=== PATIENT | female | born 1955 | race Caucasian/White ===

== ENCOUNTER 2022-05-24 08:02 | Outpatient (CLI) | payer MEDICARE, BC, OTHER, SELFPAY ==
--- NOTE | 2022-05-24 08:15 | CRLHL7_ITS ---
For Patients: As a result of the Century Cures Act, medical imaging exams and procedure reports are released immediately into your electronic medical record. You may view this report before your referring provider. If you have questions, please contact your health care provider. BILATERAL MAMMOGRAM WITH COMPUTER-AIDED DETECTION AND TOMOSYNTHESIS TECHNIQUE: CC and MLO views were obtained. These mammographic images have been obtained using full-field digital technique. These mammographic images were interpreted with the benefit of computer-aided detection. Breast Tomosynthesis was used in this interpretation. COMPARISON FILM: 01/19/2021, 10/28/2019, 06/02/2018. FINDINGS: The breasts are heterogeneously dense, which may obscure small masses IMPRESSION: There is no radiographic evidence for malignancy. ASSESSMENT: BI-RADS Category 1: Negative RECOMMENDATION: Routine screening mammogram in 1 year. A lay language report of this examination will be provided to the patient. Good Armstrong M.D. Diagnostic Radiologist [email or web address] [place]OR/Dictated by: Good Armstrong MD @ 05/24/2022 9:24:00 AM (Electronically Signed)
== END 2022-05-24 08:03 | disposition home or self-care (01) ==
LOC: MAMMO 08:05
PROVIDERS: Visit Provider Internal Medicine
DX: Z12.31 Encounter for screening mammogram for malignant neoplasm of breast (principal)
CPT/HCPCS: 77063; 77067

== ENCOUNTER 2022-06-20 08:14 | Outpatient (CLI) | payer MEDICARE, BC, OTHER, SELFPAY ==
[2022-06-20 12:15] LABS: Cholesterol* 179 mg/dL (90-199); Creatinine* 0.9 mg/dL (0.5-1.5); Estimated Glomerular Filt Rate 70 ml/min
[2022-06-20 12:16] LABS: Glucose* 93 mg/dL (60-115); HDL Cholesterol* 54 mg/dL (>=50); LDL Cholesterol Calculated 104 mg/dL (<100); Triglycerides* 107 mg/dL (40-149)
[2022-06-20 12:25] LABS: Vitamin D 25 Hydroxy* 36 ng/mL (30-80)
== END 2022-06-20 08:15 | disposition home or self-care (01) ==
PROVIDERS: Visit Provider Obstetrics & Gynecology
DX: Z01.419 Encounter for gynecological examination (general) (routine) without abnormal findings (principal); Z13.1 Encounter for screening for diabetes mellitus; Z13.6 Encounter for screening for cardiovascular disorders; Z13.29 Encounter for screening for other suspected endocrine disorder; Z90.5 Acquired absence of kidney; Z13.21 Encounter for screening for nutritional disorder; M85.80 Other specified disorders of bone density and structure, unspecified site; K58.9 Irritable bowel syndrome, unspecified; N95.1 Menopausal and female climacteric states
CPT/HCPCS: 80061; 82306; 82565; 82947; 84443

== ENCOUNTER 2022-07-26 12:49 | Outpatient (CLI) | payer MEDICARE, BC, OTHER, SELFPAY ==
--- NOTE | 2022-07-26 13:30 | CRLHL7_ITS ---
For Patients: As a result of the Century Cures Act, medical imaging exams and procedure reports are released immediately into your electronic medical record. You may view this report before your referring provider. If you have questions, please contact your health care provider. DXA BONE MINERAL DENSITY STUDY Current height (in): 65.0 Weight (lb): 148.0 Menopause age: 53 Ethnicity: White 1. Have you had a previous hip or vertebral fracture? No. 2. Have you had any fractures during your adult life which did not result from significant trauma (e.g., auto accident)? No. 3. Did either of your parents have a hip fracture? No. 4. Do you smoke? No. 5. Have you ever taken Glucocorticoids? No. 6. Do you have rheumatoid arthritis? No. 7. Do you have secondary osteoporosis? No. 8. Do you drink 3 or more alcoholic drinks per day? No. 9. Are you being treated for osteoporosis? No. 10. Have you ever taken any of the following medications: Actonel, Evista, Fosamax, Miacalcin, Reclast, Boniva, Forteo, HRT (i.e. estrogen/hormone therapy), Protelos, Prolia, Vitamin D, Calcium, other ??? please specify. ANSWER: Yes, Vitamin D, Calcium. 11. Do you have any of the following medical conditions: Anorexia or bulimia, asthma or emphysema, end stage renal disease, hyperparathyroidism, any seizure disorders, cancer, inflammatory bowel diseases, hysterectomy, other ??? please specify. ANSWER: No. 12. What was your maximum height (inches)? 65 13. Do you perform weight bearing exercise regularly? No. 14. Do you regularly consume dairy products? Yes. 15. Do you drink caffeinated beverages? Yes. 16. At what age did your period start? 10 17. Are you premenopausal? No. 18. How many full term pregnancies have you had? 3 19. Have you ever missed your period for more than 6 months in a row (not including or menopause)? No. TECHNIQUE: Bone mineral density study was performed using the [employer]. FINDINGS: The results of the study expressed as bone mineral density (BMD) are as follows: Lumbar spine L1 to L4: BMD: 0.856 g/cm2. T-score: -1.7. Z-score: 0.3. Neck Left: BMD: 0.660 g/cm2. T-score: -1.7. Z-score: 0.0. Right: BMD: 0.629 g/cm2. T-score: -2.0. Z-score: -0.3. Total Left: BMD: 0.805 g/cm2. T-score: -1.1. Z-score: 0.3. Right: BMD: 0.815 g/cm2. T-score: -1.0. Z-score: 0.4. IMPRESSION: Osteopenia. *Comparison exams done prior to 04/2020 were performed on different unit, [facility]. COMPARISON: Compared with scan of 05/25/2020, the bone mineral density has decreased by 0.3 percent at the spine and increased by 3.4 percent at the hip. Compared with scan of 02/02/2019, the bone mineral density has decreased by 3.1 percent at the spine and increased by 3.8 percent at the hip. FRAX 10-year Fracture Risk Major Osteoporotic Fracture: 11 percent Hip Fracture: 2.0 percent Reported Risk Factors: [place] () Neck BMD=0.629, BMI=24.6 Good Armstrong M.D. Diagnostic Radiologist [email or web address] DSM/pjt PT/Dictated by: Good Armstrong MD @ 07/26/2022 2:43:00 PM (Electronically Signed)
== END 2022-07-26 12:50 | disposition home or self-care (01) ==
LOC: RAD 12:49
PROVIDERS: Visit Provider Obstetrics & Gynecology
DX: Z13.820 Encounter for screening for osteoporosis (principal); M85.89 Other specified disorders of bone density and structure, multiple sites; M85.80 Other specified disorders of bone density and structure, unspecified site; Z79.51 Long term (current) use of inhaled steroids
CPT/HCPCS: 77080

== ENCOUNTER 2023-06-04 08:42 | Outpatient (CLI) | payer MEDICARE, BC, OTHER, SELFPAY ==
--- NOTE | 2023-06-04 08:45 | CRLHL7_ITS ---
For Patients: As a result of the Century Cures Act, medical imaging exams and procedure reports are released immediately into your electronic medical record. You may view this report before your referring provider. If you have questions, please contact your health care provider. BILATERAL SCREENING MAMMOGRAM WITH COMPUTER-AIDED DETECTION AND TOMOSYNTHESIS TECHNIQUE: CC and MLO views were obtained. These mammographic images have been obtained using full-field digital technique. These mammographic images were interpreted with the benefit of computer-aided detection. Breast tomosynthesis was used in this interpretation. COMPARISON FILM: 05/24/22, 01/19/21, 10/28/19. FINDINGS: There are scattered areas of fibroglandular density. IMPRESSION: There is no radiographic evidence for malignancy. ASSESSMENT: BI-RADS Category 1: Negative RECOMMENDATION: Routine screening mammogram in 1 year. A lay language report of this examination will be provided to the patient. GOOD PINEDO M.D. Diagnostic Radiologist [email or web address] JACQUELINE/duy Transcribed: 06/04/2023, 6:[address]/Dictated by: Good Pinedo MD @ 06/04/2023 12:50:00 PM (Electronically Signed)
== END 2023-06-04 08:43 | disposition home or self-care (01) ==
LOC: MAMMO 08:43
PROVIDERS: PCP Internal Medicine; Visit Provider Obstetrics & Gynecology
DX: Z12.31 Encounter for screening mammogram for malignant neoplasm of breast (principal)
CPT/HCPCS: 77063; 77067

== ENCOUNTER 2023-06-05 06:01 | Day surgery (SDC) | payer MEDICARE, BC, OTHER, SELFPAY ==
[2023-06-05] VITALS (16 sets, daily range): BP systolic 102–163; BP diastolic 49–90; PULSE 66–92; RESP 16–20; TEMP 36.1–36.3; O2SAT 92–99; BMI 25.9
[2023-06-05] MEDS: LACTATED RINGERS 1000 ML 1,000 ML 100 ML IV ×2 (06:55→09:20)
[2023-06-05] MEDS: SODIUM CHLORIDE 0.9 % (FLUSH) 10 ML SYRINGE IVF (06:56)
[2023-06-05] MEDS: SCOPOLAMINE 1 MG/3 DAY PATCH 1 PATCH TRANSDERMA (07:10)
[2023-06-05] MEDS: MIDAZOLAM HCL 1 MG/ML inj IVP (07:12)
[2023-06-05] MEDS: fentaNYL 100 MCG/2 ML inj IVP (07:12)
--- NOTE | 2023-06-05 07:16 | SUR.PREOP ---
TIME?OUT:?711 PT/RN/MDA?VERIFICATION?OF?SURGICAL?SITE,?PROCEDURE,?AND?CONSENT OBTAINED?PRIOR?TO?INVASIVE?PROCEDURE.
[2023-06-05] MEDS: CEFAZOLIN 2 GM in 0.9 % SODIUM CHLORIDE Mini-bag 100 ML IVPB (07:35)
[2023-06-05] MEDS: EPINEPHrine 1 MG in SODIUM CHLORIDE IRRIG SOLUTION 3,000 ML 9003 MG IRRIGATION ×6 (08:00→09:26)
[2023-06-05] MEDS: EPINEPHrine 1 MG in SODIUM CHLORIDE IRRIG SOLUTION 3,000 ML 3001 MG IRRIGATION (08:45)
--- NOTE | 2023-06-05 09:46 | PM.ORPRC ---
Procedure Note Date of procedure: 06/05/23 Procedure: PREOPERATIVE DIAGNOSES: 1. Right shoulder rotator cuff retear after prior repair (2016, Dr. Meza.) 2. Right shoulder labral tearing POSTOPERATIVE DIAGNOSES: 1. Right shoulder rotator cuff retear after prior repair (2016, Dr. Meza.)-now upper border subscapularis, entire supraspinatus, and anterior infraspinatus were all torn with significant adhesions and limited excursion initially 2. Right shoulder labral tearing 3. 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 Right shoulder retained deep implant (FiberWire suture and Ethibond suture from prior rotator cuff repair along with metallic anchor was and peek PushLock anchors. NAME OF OPERATION: 1. Right shoulder arthroscopic rotator cuff re-repair (massive tear with 3/4 tendon involvement with significant retraction and adhesions) - of note, 20% added difficulty for this case and added time due to the significant adhesions of this rotator cuff retear. The tissue quality was also fair as opposed to good. This required more release of the tissue to help with tissue excursion and repair. 2. Right shoulder arthroscopic extensive glenohumeral debridement 3. Right shoulder arthroscopic removal foreign body (multiple FiberWire and Ethibond suture) SURGEON: Cachorro Samson MD HAND SPRING REPAIRER HELPER: Tevin Jasso. Of note, a skilled coding assistant was critical for this case to aide in patient positioning, suture manipulation, arm positioning, instrument positioning, and closure. ANESTHESIA: General plus preoperative supraclavicular block. EBL: 25 mL IMPLANTS: Arthrex 2.6 mm FiberTak RC (x2); 5.5 mm BioComposite SwiveLock suture anchor (x2); 4.75 mm BioComposite SwiveLock suture anchor (x1) COMPLICATIONS: None evident INDICATIONS: The patient is a pleasant, 67-year-old female who has experienced right shoulder pain that has been increasing in recent time. Physical exam and imaging were consistent with a rotator cuff tear. In fact, her history of rotator cuff repair in 2016 (Dr. Shore) did fine for number of years. Unfortunately, last couple years she has noted increasing pain and weakness and dysfunction. Given their findings, as well as the weakness and pain, and inadequate response to nonoperative management, recommendation was made for surgery. FINDINGS: Exam under anesthesia revealed stable shoulder with excellent range of motion. The diagnostic arthroscopy revealed grade 3 chondromalacia humeral head especially superiorly and anteriorly. Small region grade 3 glenoid chondromalacia centrally. The Subscapularis tendon was torn from its upper border with the, tissue connected. The biceps tendon was absent consistent with prior biceps tenotomy. The superior rotator cuff tendon was found to be torn full-thickness involving the entire supraspinatus and anterior majority of the infraspinatus with significant retraction in a reverse L-shaped type pattern. The labrum was degeneratively frayed in the anterior and superior aspects with a small region of the biceps stump remaining. No loose bodies were identified within the pouch or subscapularis recess. PROCEDURE: Following a thorough discussion of risks, benefits, and alternatives, consent was obtained and the right shoulder was marked. The patient was brought to the operating room and placed supine on the operating table. Induction of anesthesia was completed after preoperative supraclavicular block was administered in preop holding. Appropriate time out was performed identifying proper patient, site, and procedure. 2 g IV Ancef was administered within 1 hour of incision preoperatively. The right upper extremity was prepped and draped in the appropriate sterile fashion using ChloraPrep prep. This was after the patient was positioned in the beach chair with their head in neutral alignment and all bony prominences well padded. The shoulder was insufflated with 20mL of normal saline via an 18g spinal needle from a posterior approach. An 11 blade skin incision allowed a blunt trochar to be inserted and diagnostic arthroscopy to be performed with the findings as noted above. An anterior portal was established with an outside in technique. This allowed the probe to be inserted and confirm the diagnostic arthroscopic findings. The shaver was then inserted and allowed debridement of the anterior and superior labrum as well as biceps stump and loose chondral flaps on the humeral head and glenoid chondral tissue. Following this, the upper border subscapularis was repaired after debriding the lesser tuberosity with the shaver and [place] cautery. Subscapularis was captured in horizontal mattress fashion with a fiber tape suture. The tails were brought to a single anchor in the lesser tuberosity with excellent reapproximation of the subscap tendon and good excursion/tension. Thereafter, the subacromial space was entered. Here, a complete bursectomy was performed improving visualization of the subacromial space. We were able to identify the rotator cuff including supraspinatus and infraspinatus. This was retracted in a reverse L-shaped type pattern. It was retracted near to the level of the glenoid. Significant lysis of adhesions and tissue mobilization was required both superficially and deep to the rotator cuff tissue to improve its excursion and repair ability. Further inspection of the supraspinatus and infraspinatus rotator cuff was performed. This identified the tear as noted above. The previous metallic corkscrew anchors with for the medial row fixation and peek PushLock suture anchors for lateral fixation were identified. Multiple FiberWire and Ethibond sutures were seen throughout the shoulder both near the anchor attachments and within the torn rotator cuff tissue. This FiberWire and Ethibond suture foreign bodies were removed arthroscopically with a combination of [place], shaver, and arthroscopic scissors. The margins of the tear were debrided, and the greater tuberosity was debrided with a combination of the [place] cautery, shaver, and bur on reverse setting. Extensive lysis of adhesions and tissue dissection was required to mobilize the rotator cuff tissue provide improved excursion to help with rotator cuff reattachment. After gentle decortication, 2 separate 2.6 mm FiberTak RC (standard) anchor was utilized for medial row. The suture tape sutures were passed independently and eventually tied. The FiberTape sutures were then passed deep to this like a Yusef-Dar concept. This was performed for both the anterior and posterior medial row anchors. Marginal convergence sutures were also utilized for the reverse L-shaped component attaching the anterior portion supraspinatus to the more anterior tissue including the common tissue and rotator interval tissue. 1 of the tapes from each of the anchors were then passed into a lateral row anchor and of FiberLink was also utilized for the far anterior tissue to help reapproximate this. Excellent reapproximation of the tissue to the greater tuberosity was achieved with broad footprint compression. Prior to anchor automobile drivers removal, the eyelet sutures were tugged on for each anchor and found that the anchor had excellent stability within the bone. The shoulder was placed through range of motion and found to be stable. The rotator cuff was re-probed and found to be stable. Instruments were removed. Excess fluid was drained, closure performed with 4-0 Monocryl and Steri-Strips. Dressings were applied. Sling was applied. The patient was awoken from anesthesia and transferred to the PACU in stable condition. A skilled coding assistant was critical for this case to aid in patient positioning, limb positioning, skill to manipulate arthroscopic instruments and camera, suture management, patient safety, and closure. * again, 20% added time, difficulty, and complexity for this case due to the retear scenario, retraction of rotator cuff tissue, and adhesions to the surrounding tissue/bursal tissue requiring significantly greater tissue mobilization, tissue dissection, and time. PLAN: 1. Elbow, forearm, wrist and digit range of motion as tolerated. 2. Encouraged ice. 3. Percocet for pain as needed. 4. Sling at all times except for ROM and showering. 5. Follow up with PA visit in 1-2 weeks for wound check. Initiate physical therapy at the 4 week mayo for passive range of motion. Weight on active assisted motion and tell approximately 8 weeks. Active motion by approximately 10 weeks. Strengthening not until approximately 12-14 weeks due to the retear situation and massive tear size. May do pendulums now.
--- NOTE | 2023-06-05 09:47 | P.NB_ITS ---
Nerve Block Nerve Block Time Seen by Provider: 07:15 Date Seen: 06/05/23 Type of block requested by surgeon for post-operative analgesia: supraclavicular Side: right Time out performed: Yes Verification of patient name: Yes Verification of date of : Yes Site marking: site marked Name of person performing procedure: Sylvester Continuous monitoring Was continuous monitoring of O2 sat, B/P, diagnostic cardiac sonographer, recorded every 15 minutes?: Yes Procedure Checklist: sterile prep, needles and gloves Ultrasound guided. Images saved: Yes Medications given in 5ml increments after negative aspiration: Ropivicaine %: 0.5 mL: 20 Needle gauge: 22 Decadron (mg): 10 Precedex (mcg): 25 Patient tolerated procedure well: Yes Block Charges Block Charge (with Pro Fee): Brachial Plexus Use of Ultrasound Machine for Block: Yes- US Guidance/pain block
--- NOTE | 2023-06-05 09:47 | W.ANESCHARGE ---
Anesthesia Charges Start Date/Time Anesthesia Start Date: 06/05/23 Anesthesia Start Time: 07: Stop Date/Time Anesthesia Stop Date: 06/05/23 Anesthesia Stop Time: 10:11
--- NOTE | 2023-06-05 10:12 | W.ANESCHARGE ---
Anesthesia Charges Start Date/Time Anesthesia Start Date: 06/05/23 Anesthesia Start Time: 07: Stop Date/Time Anesthesia Stop Date: 06/05/23 Anesthesia Stop Time: 10:11
== END 2023-06-05 12:39 | disposition home or self-care (01) ==
PROVIDERS: PCP Internal Medicine; Visit Provider Orthopaedic Surgery Sports Medicine
PROC: (CPT 29805; principal; 2023-06-05 07:30)
DX: M75.101 Unspecified rotator cuff tear or rupture of right shoulder, not specified as traumatic (principal); S43.431A Superior glenoid labrum lesion of right shoulder, initial encounter; M94.211 Chondromalacia, right shoulder; M79.5 Residual foreign body in soft tissue; M75.01 Adhesive capsulitis of right shoulder; G89.18 Other acute postprocedural pain
CPT/HCPCS: 29827; 29823; 29819; 01630; 64415; 76942; A9270; C1713; J0171; J0690; J1100; J2250; J2795; J3010; J7120; L3670

== ENCOUNTER 2023-06-08 17:50 | Emergency (ER) | payer MEDICARE, BC, OTHER, SELFPAY ==
[2023-06-08 17:58] VITALS: BP 130/79; PULSE 112; RESP 18; TEMP 36.6; O2SAT 96; BMI 25.5
--- NOTE | 2023-06-08 19:25 | CRLHL7_ITS ---
For Patients: As a result of the Cures Act, medical imaging exams and procedure reports are released immediately into your electronic medical record. You may view this report before your referring provider. If you have questions, please contact your health care provider. INDICATION: Shortness of breath, unable to lift arm, recent rotator surgery, short of breath TECHNIQUE: Chest radiograph 1 view COMPARISON: None FINDINGS: Mediastinum: The mediastinum is normal in appearance. The heart silhouette is normal in size and morphology. Lung: Linear band of density seen in the right lung base, likely due to discoid atelectasis. There is an asymmetric density in the medial right apex measuring 8 mm which is most likely due to osteophytes at the 1st costochondral junction. No sign of pleural effusion seen. No pneumothorax is identified. Bone and Soft tissue: See above. IMPRESSION: 1. There is an asymmetric density in the medial right apex measuring 8 mm which is most likely due to osteophytes at the 1st costochondral junction. Follow-up two-view chest radiograph is recommended to exclude pulmonary nodule. Dictated by Jeffrey San MD @ 06/08/2023 9:04:44 PM Dictated by: Jeffrey San MD @ 06/08/2023 21:04:49 (Electronically Signed)
--- NOTE | 2023-06-08 19:25 | CRLHL7_ITS ---
For Patients: As a result of the Century Cures Act, medical imaging exams and procedure reports are released immediately into your electronic medical record. You may view this report before your referring provider. If you have questions, please contact your health care provider. INDICATION: Cough. Post right rotator 06/05/2023. TECHNIQUE: Ultrasound venous duplex upper right extremity. Compression venous exam was performed using infante-scale, color Doppler, and spectral Doppler imaging. COMPARISON: None. FINDINGS: The right internal jugular, subclavian, and axillary veins are patent with normal waveforms. The brachial, basilic, and cephalic veins are fully compressible. No soft tissue abnormalities seen. IMPRESSION: No right upper extremity DVT. Dictated by Good Wiley MD @ 06/08/2023 9:39:52 PM (Electronically Signed)
--- NOTE | 2023-06-08 19:27 | ED.GENADULT ---
HPI - General Adult General Chief complaint: Cough Stated complaint: cough, had surgery on 06/05/23 Time Seen by Provider: 06/08/23 19:15 History of Present Illness HPI narrative: This 67-year-old female comes in reporting feeling of shortness of breath and increased heart rate. She does use albuterol inhaler and just now started Advair Diskus. She states that she has had a cough but does not report any fevers. She had her right rotator cuff repaired 3 days ago and has been doing well in that regard. She does not report any significant swelling in her right upper extremity or for that matter any of the other extremities. She does arrive with oximetry at 96% on room air but does have increased heart rate at 112 beats per minute. She does not report any chest pain. Related Data Home Medications Medication Instructions Recorded Confirmed Lactobacillus acidophilus 1 1,000 mmu cells PO QDAY 06/15/22 06/05/23 billion cell tablet acyclovir 5 % topical ointment 1 topical .5 Times Daily 06/15/22 03/29/23 albuterol sulfate 90 mcg/actuation 2 inhalation PRN 06/15/22 03/29/23 aerosol inhaler cholecalciferol (vitamin D3) 50 2,000 unit PO DAILY 06/15/22 06/05/23 mcg (2,000 unit) tablet epinephrine 0.3 mg/0.3 mL 0.3 mg IM .As Needed as needed PRN 06/15/22 06/05/23 injection, auto-injector estradiol 0.01% (0.1 mg/gram) 1 vaginal .Twice Weekly 06/15/22 03/29/23 vaginal cream loratadine 10 mg tablet 10 mg PO DAILY 06/15/22 06/05/23 multivitamin 1 tab PO QAM 06/15/22 06/05/23 triamcinolone acetonide 55 mcg 1 spray intranasal QDAY 06/15/22 06/05/23 nasal spray aerosol (Nasacort) ondansetron 4 mg disintegrating mg PRN 06/05/23 tablet Previous Rx's Medication Instructions Recorded ondansetron 4 mg disintegrating 4 mg PO Q8H #15 tabs 06/05/23 tablet oxycodone 5 mg tablet 5 mg PO Q4-8H PRN pain #20 tabs 06/05/23 fluticasone 250 mcg-salmeterol 50 1 inh inhalation BID #1 ea 06/08/23 mcg/dose blistr powdr for inhalation (Advair Diskus) Allergies Allergy/AdvReac Type Severity Reaction Status Date / Time fish oil Allergy Severe Anaphylactic Verified 06/05/23 06:13 shock iodine Allergy Severe Anaphylactic Verified 06/05/23 06:13 shock Fish Containing Products Allergy Anaphylaxis Verified 06/05/23 06:13 Penicillins Allergy Rash Verified 06/05/23 06:13 Sulfa (Sulfonamide Allergy Verified 06/05/23 06:13 Antibiotics) Review of Systems Status of ROS: Reports: 10 or more systems reviewed and unremarkable except as noted in History and below Narrative: Constitutional: No fevers, no weight gain or loss. Eyes: No discharge. No vision changes. HENT: No congestion, no sore throat, no ear pain. Cardiovascular: No chest pain, no palpitations. Respiratory: Cough and some feeling of shortness of breath. Gastrointestinal: No abdominal pain, no vomiting, no diarrhea. Genitourinary: No dysuria, no hematuria. Musculoskeletal: Normal range of motion. Skin: No rashes, no pruritis. Neurological: No dizziness, weakness, sensory change, speech change. Endo/Heme/Allergies: No bruising or bleeding. No polydipsia. Pysch: no suicidality, no anxiety, no insomnia. All other systems reviewed and are negative. [facility] Medical History (Updated 06/08/23 @ 21:18 by Bebo Kaplan MD) Stage 3 chronic kidney disease ?N18.30 - Chronic kidney disease, stage 3 unspecified (ICD-10) GERD (gastroesophageal reflux disease) ?K21.9 - Gastro-esophageal reflux disease without esophagitis (ICD-10) Absence of kidney ?Z90.5 - Acquired absence of kidney (ICD-10) Osteopenia ?M85.80 - Other specified disorders of bone density and structure, unspecified site (ICD-10) Osteoarthritis of carpometacarpal joint of left thumb ?M18.12 - Unilateral primary osteoarthritis of first carpometacarpal joint, left hand (ICD-10) De Quervain's tenosynovitis, left ?M65.4 - Radial styloid tenosynovitis [de Quervain] (ICD-10) History of basal cell carcinoma (BCC) ?Z85.828 - Personal history of other malignant neoplasm of skin (ICD-10) Surgical History S/P right rotator cuff repair (06/05/23) ?Z98.890 - Other specified postprocedural states (ICD-10) History of arthroscopy of right shoulder (05/29/16) ?Z98.890 - Other specified postprocedural states (ICD-10) S/P correction of deviated nasal septum (02/2022) ?Z98.890 - Other specified postprocedural states (ICD-10) History of carpal tunnel release (06/2014) ?Z98.890 - Other specified postprocedural states (ICD-10) History of tonsillectomy (~1964) ?Z90.89 - Acquired absence of other organs (ICD-10) H/O inguinal hernia repair (1982) ?Z98.890 - Other specified postprocedural states (ICD-10) ?Z87.19 - Personal history of other diseases of the digestive system (ICD-10) H/O dilation and curettage (1980) ?Z98.890 - Other specified postprocedural states (ICD-10) Status post laparoscopy (01/2020) ?Z98.890 - Other specified postprocedural states (ICD-10) History of right nephrectomy (2016) ?Z90.5 - Acquired absence of kidney (ICD-10) Social History Smoking Status: Never smoker Do you use any of these nicotine containing products: None Second hand tobacco smoke exposure: No How often do you have a drink containing alcohol: never AUDIT-C Alcohol total score: 0 Non-prescribed substance use: denies use Caffeine: Yes (2c/day) Are you now , , , , never or living with a partner: Social isolation score (0-1 are the most socially isolated patients): 1 Are you using contraception or practicing any form of control: No Exam Narrative: Exam Narrative: Constitutional: Well-developed, well-nourished, no acute distress. HEENT: Normocephalic, atraumatic. Neck: Normal range of motion. Nontender. Supple. Heart: Regular. No murmurs. Normal rate. Intact distal pulses. Lungs: Clear to auscultation. No chest discomfort. No wheezes, rhonchi, or rales. Abdomen: Normal bowel sounds. Nontender. No rebound tenderness. Genitalia: Deferred. Back: No midline tenderness. Normal range of motion. Extremities: Right shoulder bandage was removed by the patient prior to arrival. The surgical wounds appear to be healing normally. She does have some bruising and erythema in her right upper extremity related to the surgery and probably some reaction of her skin to the dressing that was applied. Skin: Intact. No rash. Warm. No erythema or pallor. Neurologic: No altered sensation. No weakness. Alert and oriented. Psychiatric: No suicidality. No anxiety or depression. No insomnia. Nursing notes and vitals signs are reviewed. Const: Vital Signs, click to edit/add: Vital Signs - 24 hr 06/08/23 17:58 Temperature 97.8 F Pulse Rate [Right Pulse Oximeter] 112 H Respiratory Rate 18 Blood Pressure [Ri ght Upper Arm] 130/79 Pulse Oximetry 96 Oxygen Delivery Me thod Room Air Course Vital Signs Vital signs: Initial Vital Signs Temperature 97.8 F 06/08/23 17:58 Temperature Source Temporal Artery Scan 06/08/23 17:58 Pulse Rate 112 H 06/08/23 17:58 Respiratory Rate 18 06/08/23 17:58 Blood Pressure 130/79 06/08/23 17:58 Blood Pressure Mean 96 06/08/23 17:58 Blood Pressure Position Sitting 06/08/23 17:58 Pulse Oximetry 96 06/08/23 17:58 Oxygen Delivery Method Room Air 06/08/23 17:58 Vital Signs Temperature 97.8 F 06/08/23 17:58 Pulse Rate 112 H 06/08/23 17:58 Respiratory Rate 18 06/08/23 17:58 Blood Pressure 130/79 06/08/23 17:58 Pulse Oximetry 96 06/08/23 17:58 Oxygen Delivery Method Room Air 06/08/23 17:58 Temperature 97.8 F 06/08/23 17:58 Pulse Rate 112 H 06/08/23 17:58 Respiratory Rate 18 06/08/23 17:58 Blood Pressure 130/79 06/08/23 17:58 Pulse Oximetry 96 06/08/23 17:58 Oxygen Delivery Method Room Air 06/08/23 17:58 Medical Decision Making MDM Narrative Medical decision making narrative: This patient comes in reporting a cough and a feeling of shortness of breath. She does have slight tachycardia but has otherwise has normal vital signs. She does not use accessory muscles for breathing and appears to be in no acute distress. Her oximetry at rest is in normal range. Given the recent surgery I did do ultrasound of her right upper extremity and this returns with no evidence of deep venous thrombus. Chest x-ray also shows no sign of acute pulmonary disease. A single-view x-ray was done despite attempting to order a two view which would have been better to evaluate what appears to be an extension of the upper part of her sternum. The 2nd view would help rule out a pulmonary nodule. I did explain this finding to the patient and suggested that she have follow-up x-ray some time to review this. The patient was intubated for her shoulder surgery and this may be causing and irritated cough for her. The patient is okay to be discharged home and received a prescription for 15 tablets of Tylenol 3 from the [facility] machine. I also refilled a prescription for her Advair Diskus. I recommended that she use [id number] medicines also as needed and directed. Discharge Plan Discharge Clinical Impression: Cough Patient Disposition: Home, Self-Care Condition: Stable Additional Instructions: Take medications as prescribed. Tylenol 3, 15 tablets, is provided from the [employer] machine. A prescription for Advair Diskus is also provided. Follow up with MD or return if worsening. Prescriptions: New fluticasone propion-salmeterol [Advair Diskus] 250-50 mcg/dose blister with device 1 inh inhalation BID Qty: 1 2RF No Action estradiol 0.01 % (0.1 mg/gram) cream 1 vaginal .Twice Weekly Lactobacillus acidophilus 1 billion cell tablet 1,000 mmu cells PO QDAY triamcinolone acetonide [Nasacort] 55 mcg aerosol,spray 1 spray intranasal QDAY Rx Instructions: administer into each nostril multivitamin Tablet 1 tab PO QAM acyclovir 5 % ointment 1 topical .5 Times Daily epinephrine 0.3 mg/0.3 mL auto-injector 0.3 mg IM .As Needed as needed PRN albuterol sulfate 90 mcg/actuation HFA aerosol inhaler 2 inhalation PRN loratadine 10 mg tablet 10 mg PO DAILY cholecalciferol (vitamin D3) 50 mcg (2,000 unit) tablet 2,000 unit PO DAILY ondansetron 4 mg tablet,disintegrating PRN ondansetron 4 mg tablet,disintegrating 4 mg PO Q8H Qty: 15 0RF oxycodone 5 mg tablet 5 mg PO Q4-8H PRN (Reason: pain) Qty: 20 0RF Follow Up/Referrals: Mariajose Woodson [Primary Care Provider] - Stand Alone Forms: [facility] Info Instructions
[2023-06-08 21:25] VITALS: BP 125/74; PULSE 89; RESP 18; TEMP 36.6; O2SAT 96
[2023-06-08 21:49] VITALS: BP 125/74; PULSE 89; RESP 18; TEMP 36.6
== END 2023-06-08 21:50 | disposition home or self-care (01) ==
PROVIDERS: Emergency Provider Emergency Medicine Emergency Medical Services; PCP Internal Medicine
DX: R05.9 Cough, unspecified (principal); Z13.6 Encounter for screening for cardiovascular disorders
CPT/HCPCS: 71045; 93971; 99283; 99284

== ENCOUNTER 2024-09-02 10:39 | Outpatient (CLI) | payer MEDICARE, BC, OTHER, SELFPAY ==
--- OUTSIDE RECORDS SUMMARY | 2024-09-02 10:42 | XMS_ITS | Clinical Summary ---
Author Organization [facility] Address [address] [place] [address] Care Team Providers Care Battery Charger Name Role Phone Elsewhere, Pcp Primary Care Provider Unavailabl e Source Comments Patient records contain information from all sites at [facility]. For routine questions regarding patient records, call [phone] during business hours, M-F 8:00 AM - 5:00 PM Central Time. Record requests for emergency care only can be directed to [phone] at any time.[facility] Allergies Active Allergy Reactions Criticality Noted Date Comments Antihistamines - Alkylamine Other (see comments) 06/23/2015 Fish Containing Products Anaphylaxis High 08/29/2015 Iodine Other (see comments) High 06/15/2022 Levofloxacin Other (see comments) 03/25/2013 She could not tolerate Penicillin Rash 02/02/2017 Shellfish Containing Products Anaphylaxis 03/25/2013 All shell fish and All fish Sulfa (Sulfonamide Antibiotics) Nausea Only,Other (see comments) 06/23/2015 Medications * This document contains information received from the source organization and may not represent a complete record from that organization. albuterol 90 mcg/actuation inhaler Inhale 2 puffs 4 (four) times a day as needed. 1 Inhaler 09/17/20 17 Active fluticasone propion-salmete roL 250-50 mcg/dose diskus inhaler Inhale 1 puff 2 (two) times a day. 60 each 09/17/20 17 Active estradiol (for_ESTRACE) 0.1 mg/g (0.01%) vaginal cream Insert 2 g into the vagina at bedtime. Apply to vagina two nights per week, Saturday and Saturday. Active EPINEPHrine (for_EPIPEN) 0.3 mg/0.3 mL injection syringe Inject 0.3 mg intramuscularly once. Inject into the thigh. For severe fish allergy. Active acyclovir (for_ZOVIRAX) 5 % ointment PRIYANKA EXT AA Q 3 H 5 10/12/20 17 Active acetaminophen (TYLENOL) 500 mg tablet Take 1,000 mg by mouth 4 (four) times a day as needed. Active cholecalciferol (VITAMIN D3) 50 mcg (2,000 Unit) tablet Take 2,000 Units by mouth daily. Active miscellaneous medical supply [facility] For personal use. Length: calf Strength: 20-30 mmHg Circumference in cm: to be measured in store 10/29/20 19 Active polyvinyl alcohol-povidon e, PF, (REFRESH CLASSIC) 1.4-0.6 % ophthalmic solution Administer 1 drop into both eyes 2 (two) times a day as needed. Active calcium carbonate 1,500 mg (600 mg calcium) tablet Take 600 mg by mouth. 04/08/20 19 Active triamcinolone (NASACORT) 55 mcg/actuation nasal spray 1 spray. 06/15/20 22 Active polyethylene glycol (MIRALAX) 17 gram/dose oral powder daily. 06/15/20 22 Active Lactobacillus acidophilus 0.5 mg (100 million cell) tablet every day 06/15/20 22 Active EPINEPHrine 0.025%-lidocain e 0.75% in BSS PLUS (EPISHUGARCAINE ) 0.025-0.75 % intraocular injection 0.3 mg. 06/15/20 22 Active triamcinolone (NASACORT) 55 mcg/actuation nasal spray Administer 1 spray into nostril(s). 06/15/20 22 Active Lactobacillus acidophilus 0.5 mg (100 million cell) tablet Take by mouth. 06/15/20 22 Active acyclovir (ZOVIRAX) 5 % ointment Apply topically. 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/20/2022 Solitary Kidney Acquired 04/16/2019 Gain Weight 04/16/2019 Chronic Kidney Disease (CKD), Stage 3 Unspecifie d 11/26/2018 Chronic Pain Syndrome 04/04/2018 Mixed Irritable Bowel Syndrome 04/04/2018 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 Alopecia Androgenetic 01/30/2018 Atrophy Vagina Due To Estrogen Deficiency 2017 Impaired Fasting Glucose 01/04/2018 Candidiasis Oral 01/04/2018 Myofascial Pain Syndrome 01/04/2018 Adjustment Disorder Mixed Reaction 01/04/2018 Pain Right Lower Quadrant 12/20/2017 Follicular Cyst Of Right Ovary 12/20/2017 Fatigue 12/09/2017 Pain Myofascial 11/28/2017 Pain Abdominal Wall 11/27/2017 Frequency Urinary 11/25/2017 Other Ovarian Cyst Right Side 11/12/2017 Pain Flank 08/30/2017 Ganglion Left Wrist 08/23/2017 Nodule Pulmonary 07/23/2017 Hyperlipidemia 07/05/2017 Nausea And Vomiting 07/05/2017 Osteopenia 07/05/2017 Sinusitis Recurrent 07/05/2017 Elevated Blood Pressure 06/14/2017 Constipation 04/02/2017 Anesthesia Complication Personal History 017 Asthma NOS 02/29/2016 Gastroesophageal Reflux Disease NOS 02/29/2016 Lipoma Face 01/09/2016 Tear Horseshoe Without Retinal Detachment Left 0 12/30/2015 Bleeding Rectal 04/11/2014 Pain Neck 02/15/2014 Cough Unspecified Type 11/17/2013 Dyspnea NOS 11/17/2013 Loss Hearing Sensorineural Bilateral 04/22/2013 Tinnitus Bilateral 04/22/2013 Fissure Anal 08/28/2011 Urinary Tract Infection Site Not Specified 12/14 Presbyopia 10/11/2010 Rhinitis Allergic 04/05/2010 Migraine Headache 04/05/2010 Nonspecific Mesenteric Lymphadenitis 01/18/2010 Angiomyolipoma Kidney Left 01/06/2007 Resolved Problems Problem Noted Date Diagnosed Date Resolved Date Leiomyoma Personal History 12/20/2017 0 04/16/2019 Alopecia 12/09/2017 04/16/2019 Nephrectomy Status Post 11/12/201704/2019 Overview (11/12/2017): Right Angiomyolipoma Kidney Right 07/05/2017 04/16/2019 Bleed Nose 07/05/2017 04/16/2019 Family History Medical History Relation Name Comments Hypertension Aunt Fe Moreno Gout Brother 1 Mynor Hyperlipidemia Brother 1 Mynor Hypertension Brother 1 Mynor Stroke Brother 1 Mynor Asthma Brother 2 Renny Gout Brother 2 Renny Hyperlipidemia Brother 2 Renny Hypertension Brother 2 Renny Hyperlipidemia Brother 3 Vincent Coronary artery disease Father Diabetes Father Heart attack Father Pernicious anemia Father Vitamin B12 deficiency Father Coronary artery disease Mother Mother Diabetes Mother Mother Pre diabetes... never on medication for this. Heart attack Mother Mother Hyperlipidemia Mother Mother Hypertension Mother Mother Osteoarthritis Mother Mother Osteoporosis Mother Mother Sleep apnea Mother Mother Stroke Mother Mother Vitamin D deficiency Mother Mother Hypertension Sister 1 Diabetes Sister 2 Fe Egan Pre diabetes... no medication at this time. Diabetes Uncle 1 Paternal Coronary artery disease Uncle 2 Heart attack Uncle 2 Valvular heart disease Uncle 2 Relation Name Status Comments Aunt Fe Moreno Brother 1 Mynor Brother 2 Renny Brother 3 Vincent Father Mother Mother Sister 1 Sister 2 Fe Egan Uncle 1 Paternal Uncle 2 Social History Tobacco Use Types Packs/Day Years Used Date Smoking Tobacco: Never Smokeless Tobacco: Never Tobacco Cessation:Counseling Given: Not Answered Alcohol Use Standard Drinks/Week Comments No 0 (1 standard drink = 0.6 oz pur e alcohol) Humiliation, Afraid, Rape, and Kick questionnair e Answer Date Recorded Within the last year, have y ou been afraid of your partner or ex-partner? No 02/22/2023 Within the last year, have y ou been humiliated or emotionally abused in other ways by your partner or ex-partner? No Within the last year, have y ou been kicked, hit, slapped, or otherwise physically hurt by your partner or ex-partner? No 02/22/2023 Within the last year, have y ou been raped or forced to have any kind of sexual activity by your partner or ex-partner? No 02/22/2023 Social Connection and Isolat ion Panel [NHANES] Answer Date Recorded In a typical week, how many times do you talk on the phone with family, friends, or neighbors? More than three times a week 02/22/2023 How often do you get togethe r with friends or relatives? More than three times a week 02/22/2023 How often do you attend chur ch or alevism services? More than 4 times per year 02/22/2023 Do you belong to any clubs o r organizations such as mosque groups, unions, fraternal or athletic groups, or school groups? Yes 02/22/2023 How often do you attend meet ings of the clubs or organizations you belong to? More than 4 times per year 02/22/2023 Are you , , di vorced, , never , or living with a partner? 02/22/2023 AUDIT-C Answer Date Recorded Q1: How often do you have a drink containing alc ohol? Never 02/22/2023 Average Number of Drinks Not on file 023 Frequency of Binge Drinking Not on file 02/09 Overall Financial Resource Strain (CARDIA) Answe r Date Recorded How hard is it for you to pa y for the very basics like food, housing, medical care, and heating? Not hard at all 02/22/2023 [facility] - Occupational Stress Questionnaire Answer Date Recorded Do you feel stress - tense, restless, nervous, or anxious, or unable to sleep at night because your mind is troubled all the time - these days? Not at all 02/22/2023 Exercise Vital Sign Answer Date Recorde d On average, how many days pe r week do you engage in moderate to strenuous exercise (like a brisk walk)? 5 days 02/22/2023 On average, how many minutes do you engage in exercise at this level? 20 min 02/22/2023 Hunger Vital Sign Answer Date Recorded Within the past 12 months, y ou worried that your food would run out before you got the money to buy more. Never true 02/23/20 23 Within the past 12 months, t he food you bought just didn't last and you didn't have money to get more. Never true 02/22/2023 PRAPARE - Transportation Answer Date Re corded In the past 12 months, has l ack of transportation kept you from medical appointments or from getting medications? No 02/09 In the past 12 months, has l ack of transportation kept you from meetings, work, or from getting things needed for daily living? No 02/22/2023 Housing Stability Vital Sign Answer Vernon e Recorded In the last 12 months, was t here a time when you were not able to pay the mortgage or rent on time? No 02/22/2023 In the last 12 months, how many places have you lived? 1 02/22/2023 In the last 12 months, was t here a time when you did not have a steady place to sleep or slept in a m[facility]p (including now)? No 02/22/2023 Nutrition Answer Date Recorded On average, how many serving s of fruits and vegetables do you eat per day (serving size is equal to 1 cup or approximately the size of a tennis ball)? 2-3 02/22/2023 Dental Answer Date Recorded Dental: Regular Dentist Yes 07/26/20 Employment Answer Date Recorded Employment status Retired 02/22/2023 Education Answer Date Recorded What is the highest level of school you have completed or the highest degree you have received? Master's degree (e.g., MA, MS, Jackie, MEd, [employer], LINDSEY) 04/15/2019 Comments No Sex and Gender Information Value Date Recorded Sex Assigned at Female 09/16/2017 3:10 PM BED SPRING MAKER Legal Sex Female 7:51 AM BED SPRING MAKER Gender Identity Female 09/16/2017 3:10 PM BED SPRING MAKER Sexual Orientation Straight 09/16/2017 3: 10 PM BED SPRING MAKER Last Filed Vital Signs Vital Sign Reading Time Taken Comments Blood Pressure 136/86 08/29/2023 8:31 AM CDT Pulse 76 08/29/2023 8:20 AM CDT Temperature 36.4 ??C (97.5 ??F) 08/29/2023 8:15 AM CD T Respiratory Rate 16 04/03/2018 10:0 5 PM CDT Oxygen Saturation 96% 08/29/2023 8:20 AM CDT Inhaled Oxygen Concentration - - Weight 68.9 kg (151 lb 14.4 oz) 08/29/2023 6:17 AM CDT Height 165 cm (5' 4.96) 08/29/2023 6:17 AM CDT Body Mass Index 25.31 08/29/2023 6:17 AM CDT Plan of Treatment Upcoming Encounters Date Type Department Care Team (Late st Contact Info) Description 09/03/2024 1:45 PM CDT Appointment Department of Radiology in [place], [place] [address] [place] [phone] Mariajose Woodson D.O. [address] [facility] [place] [phone] Health Maintenance Due Date Last Done Comments CT Colonography 1955 Cologuard 1955 FIT 1955 Hepatitis C Screening 1955 COVID-19 Vaccine (#1) 1960 Lipid (Cholesterol) Screening 06/24/2019 06/24/2018, 04/24/2017, 06/22/2015, Additional history exists Mammogram 10/28/2020 10/28/2019, 02/2017, 12/22/2015, Additional history exists Pneumococcal vaccine (65+ years) (2 of 2 - PCV) 09/14/2021 09/14/2020 DTaP,Tdap,and Td Vaccines (1 - Tdap) 05/01/2022 04/30/2022 Depression Screening (Annual PHQ-2) 11/11/2023 Fall Risk Screen (Annual) 11/11/2023 Influenza Vaccine (#1) 2024 , 08/05/2020, 11/20/2019 Fasting Glucose for Diabetes Screening 06/08/2025 06/08/2024, 11/29/2023, 05/06/2023, Additional history exists Colonoscopy 10/14/2029 10/14/2019, 07/12, 05/08/2010, Additional history exists Colorectal Cancer Screening 10/14/2029 Zoster Vaccines Completed 06/29/2022, 04/30/2022 HPV Vaccines Aged Out No longer eligi ble based on patient's age to complete this topic Medical Devices Implanted Type Area Billet Recorder Device Identifier Shelf Expiration Date Model / Serial / Lot Hardware E.G. Pins/Screws/Emery s-04/23/2016 Implanted:04/23 (Quantity not on file) Hardware e.g. pins/screws /rods Shoulder Conversions - Default Historical Implant Device Implanted:08/30 (Quantity not on file) Hardware e.g. pins/screws /rods Right: Shoulder Description:Body Location - Shoulder R. screws. Device Status Text - Hardware. Procedures Procedure Name Priority Date/Time Associated Diagnosis Comments COMPREHENSIVE METABOLIC PANEL, S/P Routine 04/16/2019 8:11 AM CDT Angiomyolipoma Kidney Left LIPID PANEL, S Routine 04/24/2017 8:19 AM CDT BI BREAST SCREENING BILATERAL Routine 02/12/2017 10:43 AM CDT from Last 3 Months or Most Recently Relevant to Health Maintenance Results * (ABNORMAL) Lipid Panel (04/24/2017 8:19 AM CDT) Cholesterol, Total 201(H) <=199 MGDL POWERCHART Comment: 2014 National Lipid Association recommendations for Total Cholesterol in adults ages 18 and up: Desirable <200 mg/dL Borderline high 200-239 mg/dL High 240 mg/dL 2014 National Lipid Association recommendations for Total Cholesterol in children ages 2 to 17. Acceptable <170 mg/dL Borderline High 170-199 mg/dL High 200 mg/dL HX HDL 58 >=50 MGDL POWERCHART Comment: 2014 National Lipid Association recommendations for HDL-C in adults ages 18 and up: Low <40 mg/dL (Men) Low <50 mg/dL (Women) 2014 National Lipid Association recommendations for HDL-C in children ages 2 to 17. Low <40 mg/dL Borderline Low 40-45 mg/dL Acceptable >45 mg/dL Triglycerides 156(H) <=149 MGDL POWERCHART Comment: 2014 National Lipid Association recommendations for Triglycerides in adults ages 18 and up: Normal <150 mg/dL Borderline High 150-199 mg/dL High 200-499 mg/dL Very High 500 mg/dL 2014 National Lipid Association recommendations for Triglycerides in children ages 2 to 9. Acceptable <75 mg/dL Borderline High 75-99 mg/dL High 100 mg/dL 2014 National Lipid Association recommendations for Triglycerides in children ages 10 to 17. Acceptable <90 mg/dL Borderline High 90-129 mg/dL High 130 mg/dL Trigs >400mg/dL: Triglycerides >400 mg/dL. Calculated LDL cholesterol is not valid. Non-HDL cholesterol may be used for risk assessment when triglycerides are >400mg/dL. Calculated LDL 112 <=129 MGDL POWERCHART Comment: 2014 National Lipid Association recommendations for LDL-C in adults ages 18 and up: Desirable <100 mg/dL Above desirable 100-129 mg/dL Borderline high 130-159 mg/dL High 160-189 mg/dL Very High 190 mg/dL 2014 National Lipid Association recommendations for LDL-C in children ages 2 to 17. Acceptable <110 mg/dL Borderline High 110-129mg/dL High 130 mg/dL LDL-C >190mg/dL: The markedly elevated LDL level is suggestive of a genetic condition such as familial hypercholesterolemia(FH) or familial defective apolipoprotein B-100 (FDB). Molecular genetic testing for FH and FDB is available through [facility] [employer] [place]: FH/ADH Genetic Reflex Panel (test ADHP). Acquired (non-genetic) causes of markedly increased LDL cholesterol include cholestatic liver disease due to the presence of LpX. If a genetic form of hypercholesterolemia is suspected, family studies including biochemical testing for lipids (total cholesterol,triglycerides, LDL cholesterol and HDL cholesterol) are recommended. ??Please contact the laboratory at or the on-line test catalog at [email or web address] for information about how to order these tests or to speak with a genetic counselor. Further interpretation would require clinical information. Total Cholesterol/HDL Ratio 3.00 POWERCHART HXLDL/HDL 2 POWERCHART Blood 04/24/2017 8:19 AM CDT Sarah Steiner M.D. LAB BLOOD ADD-ON Edited Result - Final POWERCHART * BI Breast Screening Bilateral (02/12/2017 10:43 AM CDT) Anatomical Region Laterality Modality Breast Bilateral Mammography 02/12/2017 10:4 3 AM CDT Addenda Addendum by ProviderFatmata M.D. on 02/12/2017 10:43 AM CDT RAD^^^OW [place] Mammo Screening w ??CADD 02/12/2017 10:43:20 Impressions 02/20/2017 1:20 PM CDT No mammographic findings for malignancy in either breast. Recommendations: ??I recommend a follow-up mammogram in 1 year, self breast exams at least once per month and clinical breast exam at least once per year. ??Of note, benign findings should not deter biopsy in the setting of a palpable abnormality. ??The false negative rate of mammography is approximately 10%. CODE: 1-NEGATIVE Appropriate letter sent. Full field digital mammography is used and Computer Aided Detection is performed on the digital mammogram images. Narrative 02/20/2017 1:20 PM CDT EXAM: [place] Mammo Screening w/ CADD INDICATION: screening COMPARISON: 12/22/2015, 07/29/2014, 07/15/2012, 06/22/2011 FINDINGS: Heterogeneously dense breast parenchyma bilaterally. Breast density diminishes mammographic sensitivity for detection malignancy. Procedure Note Luiz Koehler M.D. / Fatmata Kenny M.D. - 04/29/2017 EXAM: [place] Mammo Screening w/ CADD INDICATION: screening COMPARISON: 12/22/2015, 07/29/2014, 07/15/2012, 06/22/2011 FINDINGS: Heterogeneously dense breast parenchyma bilaterally. Breast density diminishes mammographic sensitivity for detection malignancy. IMPRESSION: No mammographic findings for malignancy in either breast. Recommendations: I recommend a follow-up mammogram in 1 year, self breast exams at least once per month and clinical breast exam at least once per year. Of note, benign findings should not deter biopsy in the setting of a palpable abnormality. The false negative rate of mammography is approximately 10%. CODE: 1-NEGATIVE Appropriate letter sent. Full field digital mammography is used and Computer Aided Detection is performed on the digital mammogram images. us Sara Lozano(R), R.TAnaid(R)(M) IMG BI [place] OCEDURES Edited Result - Final from Last 3 Months or Most Recently Relevant to Health Maintenance Insurance [facility] [place] [address] MEDICARE RUST Advance Directives For more information, please contact: [phone] Documents on File Type Date Recorded Patient Imaging Aide Expl anation Advance Directives 10/15/2017 12:00 AM Leg acy document. See document viewer. Care Teams Battery Charger Relationship Specialty Start Date End Date Elsewhere, Pcp PCP - General Family Medicine 07/21/18
--- OUTSIDE RECORDS SUMMARY | 2024-09-02 10:42 | XMS_ITS | Encounter Summary ---
Author Organization [facility] Address [address] [place] [address] Care Team Providers Care Tube Coater Name Role Phone Elsewhere, Pcp Primary Care Provider Freddie e Encounter Details Date Type Department Care Team (Late st Contact Info) Description 04/18/2017 Historical Ophthalmology [facility] Lv Gupta Jr., M.D. [address] [place] [phone] Social History Tobacco Use Types Packs/Day Years Used Date Smoking Tobacco: Never Comments Unknown Sex and Gender Information Value Date Recorded Sex Assigned at Female 09/16/2017 3:10 PM DIP LUBE OPERATOR Legal Sex Female 7:51 AM DIP LUBE OPERATOR Gender Identity Female 09/16/2017 3:10 PM DIP LUBE OPERATOR Sexual Orientation Straight 09/16/2017 3: 10 PM DIP LUBE OPERATOR documented as of this encounter Progress Notes * Lv Gupta M.D. - 04/18/2017 9:03 AM CDT Eye General CHIEF COMPLAINT 6 Month Recheck HISTORY OF PRESENT ILLNESS Less floaters- Continues to have have floaters with strainer Continues to have light flashes outside adventism left eye Distance vision is not as sharp IMPRESSION / REPORT / PLAN #1 h/o retinal tears stable, laser well supported #2 Mild NSC New glasses RTO 1 year DIAGNOSIS #1 h/o retinal tears #2 Mild NSC CDM Reports - EYEGEN Id: [id number] Status: Fnl documented in this encounter Plan of Treatment Upcoming Encounters Date Type Department Care Team (Late st Contact Info) Description 09/03/2024 1:45 PM CDT Appointment Department of Radiology in [place], [place] [address] [place] [phone] Mariajose Woodson D.O. [address] [place] [phone] documented as of this encounter Visit Diagnoses Not on filedocumented in this encounter Additional Health Concerns Infection Onset Date Last Indicated Resolved Time COVID19 Pending 09/05/2020 09/05/2020 09/06/2020 3 :40 PM CDT COVID19 Pending 02/17/2022 02/19/2022 02/19/2022 1 0:52 PM CDT Assessment Noted Time PHQ-9 Depression Total Score: 0 04/03/20 17 4:20 PM CDT documented as of this encounter Care Teams Tube Coater Relationship Specialty Start Date End Date Elsewhere, Pcp PCP - General Family Medicine 07/21/18 documented as of this encounter
--- OUTSIDE RECORDS SUMMARY | 2024-09-02 10:42 | XMS_ITS | Referral Summary ---
Author Organization [facility] Address [address] [place] [address] Care Team Providers Care Shift Foreman Name Role Phone Elsewhere, Pcp Primary Care Provider Unavailabl e Source Comments Patient records contain information from all sites at [facility]. For routine questions regarding patient records, call [phone] during business hours, M-F 8:00 AM - 5:00 PM Central Time. Record requests for emergency care only can be directed to [phone] at any time.[facility] Allergies Active Allergy Reactions Criticality Noted Date [...] by mouth daily. Active miscellaneous medical supply [facility] [place] For personal use. Length: calf Strength: 20-30 [...] Right 07/05/2017 04/16/2019 Bleed Nose 07/05/2017 04/16/2019 Social History Tobacco Use Types Packs/Day Years [...] 02/22/2023 How often do you attend chur or church services? More than 4 times per year 02/22/2023 Do you belong to any clubs o r organizations such as tenriism groups, unions, fraternal or athletic groups, or [...] and heating? Not hard at all 02/22/2023 [facility] of Occupat ional Health - Occupational Stress [...] place to sleep or slept in a chcf (including now)? No 02/22/2023 Nutrition Answer Date [...] Master's degree (e.g., MA, MS, Jackie, MEd, OPTOMETRY PROFESSOR, LINDSEY) 04/15/2019 Comments No Sex and Gender Information Value Date Recorded Sex Assigned at Female 09/16/2017 3:10 PM BIG DATA PLATFORM ARCHITECT Legal Sex Female 7:51 AM BIG DATA PLATFORM ARCHITECT Gender Identity Female 09/16/2017 3:10 PM BIG DATA PLATFORM ARCHITECT Sexual Orientation Straight 09/16/2017 3: 10 PM BIG DATA PLATFORM ARCHITECT Last Filed Vital Signs Vital Sign Reading [...] PM CDT Appointment Department of Radiology in [place], [place] [address] [phone] Mariajose Woodson D.O. [address] [place] [phone] Medical Devices Implanted Type Area Mussel Opener Device Identifier Shelf Expiration Date Model / [...] for FH and FDB is available through [facility] [employer]: FH/ADH Genetic Reflex Panel (test ADHP). Acquired (non-genetic) causes of markedly increased LDL cholesterol include cholestatic liver disease due to the presence of LpX. If a genetic form of hypercholesterolemia is suspected, family studies including biochemical testing for lipids (total cholesterol,triglycerides, LDL cholesterol and HDL cholesterol) are recommended. ??Please contact the laboratory at or the on-line test catalog at [employer] for information about how to order these tests or to speak with a genetic counselor. Further interpretation would require clinical information. Total Cholesterol/HDL Ratio 3.00 POWERCHART HXLDL/HDL 2 POWERCHART Blood 04/24/2017 8:19 AM CDT us Sarah Steiner M.D. LAB BLOOD ADD-ON Edited Result - Final POWERCHART * BI Breast Screening Bilateral (02/12/2017 10:43 AM CDT) Anatomical Region Laterality Modality Breast Bilateral Mammography 02/12/2017 10:4 3 AM CDT Addenda Addendum by Provider, Xavier Avilez on 02/12/2017 10:43 AM CDT RAD^^^OW MA [...] images. Narrative 02/20/2017 1:20 PM CDT EXAM: [place] Mamm[place] Scre[place] w/ CADD INDICATION: screening COMPARISON: 12/22/2015, 07/29/2014, 07/15/2012, 06/22/2011 FINDINGS: Heterogeneously dense breast parenchyma bilaterally. Breast density diminishes mammographic sensitivity for detection malignancy. Procedure Note Luiz Koehler M.D. / Fatmata Kenny M.D. - 04/29/2017 EXAM: [place] Mamm[place] Scre[place] w/ CADD INDICATION: screening COMPARISON: [...] is performed on the digital mammogram images. Sara Nascimento RAniadTAnaid(R), R.TAnaid(R)(M) IMG BI MD OCEDURES Edited Result - Final from Last 3 Months or Most Recently Relevant to Health Maintenance Insurance [facility] MEDICARE [facility] Advance Directives For more information, please contact: [phone] Documents on File Type Date Recorded Patient Manager Corporate Responsibility Expl anation Advance Directives 10/15/2017 12:00 AM Leg acy document. See document viewer. Care Teams Shift Foreman Relationship Specialty Start Date End Date Elsewhere, Pcp PCP - General Family Medicine 07/21/18
--- OUTSIDE RECORDS SUMMARY | 2024-09-02 10:42 | XMS_ITS ---
Author Organization [facility] Address [address] [place] [address] Care Team Providers Care Mine Manager Name Role Phone Unavailable Unavailable Unavailable Surgery Details Not on file Complications Check Surgery Details section. Procedure Estimated Blood Loss Check Surgery Details section. Procedure Findings Check Surgery Details section. Procedure Specimens Taken Check Surgery Details section.
--- OUTSIDE RECORDS SUMMARY | 2024-09-02 10:43 | XMS_ITS | Encounter Summary ---
Author Organization [facility] Address [address] [place] [address] Care Team Providers Care Vice President Of News Name Role Phone Elsewhere, Pcp Primary Care Provider Unavailabl e Encounter Details Date Type Department Care Team (Late st Contact Info) Description 01/22/2016 Historical Ophthalmology [facility] Lv uGpta Jr., M.D. [address] [place] [phone] Social History Tobacco Use Types Packs/Day Years Used Date Smoking Tobacco: Never Assessed Comments Unknown Sex and Gender Information Value Date Recorded Sex Assigned at Female 09/16/2017 3:10 PM ENVIRONMENTAL SOLUTIONS ENGINEER Legal Sex Female 7:51 AM ENVIRONMENTAL SOLUTIONS ENGINEER Gender Identity Female 09/16/2017 3:10 PM ENVIRONMENTAL SOLUTIONS ENGINEER Sexual Orientation Straight 09/16/2017 3: 10 PM ENVIRONMENTAL SOLUTIONS ENGINEER documented as of this encounter Progress Notes * Lv Gupta M.D. - 01/22/2016 12:42 PM CDT Eye General HISTORY OF PRESENT ILLNESS 24 hour history of light flashes, right eye, peripheral. Also history of floaters, right eye, same time period, and then peppery floater in vision of right eye. Feels that vision not effected. IMPRESSION / REPORT / PLAN #1 retinal tear, 12 o clock position RTO 2 weeks, to hospital today for emergent retinal tear repair, right DIAGNOSIS #1 retinal tear, 12 o clock position CDM Reports - EYEGEN Id: [id number] Status: Fnl documented in this encounter Plan of Treatment Upcoming Encounters Date Type Department Care Team (Late st Contact Info) Description 09/03/2024 1:45 PM CDT Appointment Department of Radiology in [place], [place] [address] [place] [phone] Mariajose Woodson D.O. [address] [place] [phone] documented as of this encounter Visit Diagnoses Not on filedocumented in this encounter Additional Health Concerns Infection Onset Date Last Indicated Resolved Time COVID19 Pending 09/05/2020 09/05/2020 09/06/2020 3 :40 PM CDT COVID19 Pending 02/17/2022 02/19/2022 02/19/2022 1 0:52 PM CDT documented as of this encounter Care Teams Vice President Of News Relationship Specialty Start Date End Date Elsewhere, Pcp PCP - General Family Medicine 07/21/18 documented as of this encounter
--- OUTSIDE RECORDS SUMMARY | 2024-09-02 10:43 | XMS_ITS | Encounter Summary ---
Author Organization [facility] Address [address] [place] [address] Care Team Providers Care Sales Support Coordinator Name Role Phone Elsewhere, Pcp Primary Care Provider Unavailabl e Encounter Details Date Type Department Care Team (Late st Contact Info) Description 06/01/2009 Historical Ophthalmology [facility] Khoa Chu M.D. [address] [place] [phone] Social History Tobacco Use Types Packs/Day Years Used Date Smoking Tobacco: Never Assessed Comments Unknown Sex and Gender Information Value Date Recorded Sex Assigned at Female 09/16/2017 3:10 PM PENSION MANAGER Legal Sex Female 7:51 AM PENSION MANAGER Gender Identity Female 09/16/2017 3:10 PM PENSION MANAGER Sexual Orientation Straight 09/16/2017 3: 10 PM PENSION MANAGER documented as of this encounter Progress Notes * Khoa Chu M.D. - 06/01/2009 1:04 PM CDT Eye General CHIEF COMPLAINT Cyst left upper brow. HISTORY OF PRESENT ILLNESS See Dr. Gupta's letter. Patient states that a junior engineer attempted to remove a mass from her left mid-forehead region in March 2008, but aborted the procedure when she encountered nerves that she thought might be motor innervation to the frontalis. Tissue that was excised was read as lipoma, evidently. She would like to have the remainder of the mass excised. IMPRESSION / REPORT / PLAN Consult requested by: Dr. Lv Gupta #1 Lipoma, incompletely excised, left forehead. Further excision of the mass is reasonable. Risks and expectations thoroughly discussed. Specifically, we reviewed potential complications related to anesthesia, bleeding, infection, supraorbital nerve dysfunction, and facial nerve paralysis. The patient understands and wishes to proceed. Patient asked to avoid aspirin and NSAIDs for 10 days preoperatively if medically safe to do so. Letter to Dr. Gupta. (monitored anesthesia care; [facility]) DIAGNOSIS #1 Lipoma, incompletely excised, left forehead. CD[facility] Id: [id number] Status: Fnl documented in this encounter Plan of Treatment Upcoming Encounters Date Type Department Care Team (Late st Contact Info) Description 09/03/2024 1:45 PM CDT Appointment Department of Radiology in [place], [place] [address] [place] [phone] Mariajose Woodson D.O. [address] [place] [phone] documented as of this encounter Visit Diagnoses Not on filedocumented in this encounter Additional Health Concerns Infection Onset Date Last Indicated Resolved Time COVID19 Pending 09/05/2020 09/05/2020 09/06/2020 3 :40 PM CDT COVID19 Pending 02/17/2022 02/19/2022 02/19/2022 1 0:52 PM CDT documented as of this encounter Care Teams Sales Support Coordinator Relationship Specialty Start Date End Date Elsewhere, Pcp PCP - General Family Medicine 07/21/18 documented as of this encounter
--- OUTSIDE RECORDS SUMMARY | 2024-09-02 10:43 | XMS_ITS | Encounter Summary ---
Author Organization [facility] Address [address] [place] [address] Care Team Providers Care Production Operations Inspector Name Role Phone Elsewhere, Pcp Primary Care Provider Unavailabl e Encounter Details Date Type Department Care Team (Late st Contact Info) Description 07/31/2016 Historical Ophthalmology [facility] Lv Gupta Jr., M.D. [address] [phone] Social History Tobacco Use Types Packs/Day Years Used Date Smoking Tobacco: Never Assessed Comments Unknown Sex and Gender Information Value Date Recorded Sex Assigned at Female 09/16/2017 3:10 PM DIRECTOR INTERNATIONAL Legal Sex Female 7:51 AM DIRECTOR INTERNATIONAL Gender Identity Female 09/16/2017 3:10 PM DIRECTOR INTERNATIONAL Sexual Orientation Straight 09/16/2017 3: 10 PM DIRECTOR INTERNATIONAL documented as of this encounter Progress Notes * Lv Gupta M.D. - 07/31/2016 2:37 PM CDT Eye General CHIEF COMPLAINT Yearly exam HISTORY OF PRESENT ILLNESS C/O has been seeing floaters in her RT eye. Has noticed them since she had surgery on her shoulder in May Sees some flashes at times in lower temporal quandrants of both eyes Sees halos around street lights at night. Just got new glasses, so does not want a refraction today ROS: Heart and lungs neg. 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 [address] [place] [phone] documented as of this encounter Visit Diagnoses Not on filedocumented in this encounter Additional Health Concerns Infection Onset Date Last Indicated Resolved Time COVID19 Pending 09/05/2020 09/05/2020 09/06/2020 3 :40 PM CDT COVID19 Pending 02/17/2022 02/19/2022 02/19/2022 1 0:52 PM CDT documented as of this encounter Care Teams Production Operations Inspector Relationship Specialty Start Date End Date Elsewhere, Pcp PCP - General Family Medicine 07/21/18 documented as of this encounter
--- OUTSIDE RECORDS SUMMARY | 2024-09-02 10:43 | XMS_ITS | Encounter Summary ---
Author Organization [facility] Address [address] [place] [address] Care Team Providers Care Senior Administrative Services Officer Name Role Phone Elsewhere, Pcp Primary Care Provider Unavailabl e Encounter Details Date Type Department Care Team (Late st Contact Info) Description 06/21/2009 Historical Ophthalmology [facility] Khoa Chu M.D. [address] [place] [phone] Social History Tobacco Use Types Packs/Day Years Used Date Smoking Tobacco: Never Assessed Comments Unknown Sex and Gender Information Value Date Recorded Sex Assigned at Female 09/16/2017 3:10 PM FEED PREPARATION OPERATOR Legal Sex Female 7:51 AM FEED PREPARATION OPERATOR Gender Identity Female 09/16/2017 3:10 PM FEED PREPARATION OPERATOR Sexual Orientation Straight 09/16/2017 3: 10 PM FEED PREPARATION OPERATOR documented as of this encounter Progress Notes * Khoa Chu M.D. - 06/21/2009 10:46 AM CDT Eye Postoperative MULTI-VISIT DOCUMENT This document contains multiple patient visits and is available for review in Document Viewer. CDM Reports - [facility] Id: [id number] Status: Fnl documented in this encounter Plan of Treatment Upcoming Encounters Date Type Department Care Team (Late st Contact Info) Description 09/03/2024 1:45 PM CDT Appointment Department of Radiology in [place], [place] [address] [place] [phone] Mariajose Woodson D.O. [address] [place] [address] [place] [phone] documented as of this encounter Visit Diagnoses Not on filedocumented in this encounter Additional Health Concerns Infection Onset Date Last Indicated Resolved Time COVID19 Pending 09/05/2020 09/05/2020 09/06/2020 3 :40 PM CDT COVID19 Pending 02/17/2022 02/19/2022 02/19/2022 1 0:52 PM CDT documented as of this encounter Care Teams Senior Administrative Services Officer Relationship Specialty Start Date End Date Elsewhere, Pcp PCP - General Family Medicine 07/21/18 documented as of this encounter
--- OUTSIDE RECORDS SUMMARY | 2024-09-02 10:43 | XMS_ITS | Encounter Summary ---
Author Organization [facility] Address [address] [place] [address] Care Team Providers Care Front End Assistant Name Role Phone Elsewhere, Pcp Primary Care Provider Unavailreyes e Encounter Details Date Type Department Care Team (Late st Contact Info) Description 12/30/2015 Historical Ophthalmology [facility] Lv Gupta Jr., M.D. [address] [phone] Social History Tobacco Use Types Packs/Day Years Used Date Smoking Tobacco: Never Assessed Comments Unknown Sex and Gender Information Value Date Recorded Sex Assigned at Female 09/16/2017 3:10 PM SENIOR MANAGING DIRECTOR Legal Sex Female 7:51 AM SENIOR MANAGING DIRECTOR Gender Identity Female 09/16/2017 3:10 PM SENIOR MANAGING DIRECTOR Sexual Orientation Straight 09/16/2017 3: 10 PM SENIOR MANAGING DIRECTOR documented as of this encounter Progress Notes * Lv Gupta M.D. - 12/30/2015 8:05 AM CST Eye General CHIEF COMPLAINT Work in Flashes and Floaters HISTORY OF PRESENT ILLNESS Saturday started to have a sudden new floater in vision with a large floater. Flash iss on the outside portion of VA and it appears as a light bulb flashing. Less noticable now but still happens often.Floater noww is tiny black dots, like pin heads that come and go. When floater is noted, VA appears to be like looking through a fish bowl. Pt noted that she had been sick and has been doing a lot of coughing. Was treated and doing better. Left eye. IMPRESSION / REPORT / PLAN #1 Horseshoe tear of retina, left eye To [place] for laser retinopexy of left eye DIAGNOSIS #1 Horseshoe tear of retina, left eye CDM Reports - [facility] Id: [id number] Status: Fnl documented in this encounter Plan of Treatment Upcoming Encounters Date Type Department Care Team (Late st Contact Info) Description 09/03/2024 1:45 PM CDT Appointment Department of Radiology in [place], [place] [address] [place] [phone] Mariajose Woodson D.O. [address] [place] [phone] documented as of this encounter Visit Diagnoses Not on filedocumented in this encounter Additional Health Concerns Infection Onset Date Last Indicated Resolved Time COVID19 Pending 09/05/2020 09/05/2020 09/06/2020 3 :40 PM CDT COVID19 Pending 02/17/2022 02/19/2022 02/19/2022 1 0:52 PM CDT documented as of this encounter Care Teams Front End Assistant Relationship Specialty Start Date End Date Elsewhere, Pcp PCP - General Family Medicine 07/21/18 documented as of this encounter
--- OUTSIDE RECORDS SUMMARY | 2024-09-02 10:43 | XMS_ITS | Encounter Summary ---
Author Organization [facility] Address [address] [place] [address] Care Team Providers Care Air Duct Mechanic Name Role Phone Elsewhere, Pcp Primary Care Provider Unavailabl e Encounter Details Date Type Department Care Team (Late st Contact Info) Description 02/13/2016 Historical Ophthalmology [facility] Lv Gupta Jr., M.D. [address] [place] [phone] Social History Tobacco Use Types Packs/Day Years Used Date Smoking Tobacco: Never Assessed Comments Unknown Sex and Gender Information Value Date Recorded Sex Assigned at Female 09/16/2017 3:10 PM STORAGE CONSULTANT Legal Sex Female 7:51 AM STORAGE CONSULTANT Gender Identity Female 09/16/2017 3:10 PM STORAGE CONSULTANT Sexual Orientation Straight 09/16/2017 3: 10 PM STORAGE CONSULTANT documented as of this encounter Progress Notes * Lv Gupta M.D. - 02/13/2016 1:25 PM CDT Eye General CHIEF COMPLAINT Recheck S/P Retinopexy OU HISTORY OF PRESENT ILLNESS Pt was seen last week by Dr Wells. Just wanted things checked over. Double VA when strianing eyes way to one side or anyother. RIGHT: Sees a clear jelly floater that comes and goes. Black specs random. Much improved. IMPRESSION / REPORT / PLAN #1 s/p retinal tears ou Stable #2 physiological diplopia Reassured RTO 6 weeks DIAGNOSIS #1 s/p retinal tears ou #2 physiological diplopia CD Reports - E[facility]GEN Id: [id number] Status: Fnl documented in this encounter Plan of Treatment Upcoming Encounters Date Type Department Care Team (Late st Contact Info) Description 09/03/2024 1:45 PM CDT Appointment Department of Radiology in [place], [place] [address] [place] [phone] Mariajose Woodson D.O. [address] [place] [phone] documented as of this encounter Visit Diagnoses Not on filedocumented in this encounter Additional Health Concerns Infection Onset Date Last Indicated Resolved Time COVID19 Pending 09/05/2020 09/05/2020 09/06/2020 3 :40 PM CDT COVID19 Pending 02/17/2022 02/19/2022 02/19/2022 1 0:52 PM CDT documented as of this encounter Care Teams Air Duct Mechanic Relationship Specialty Start Date End Date Elsewhere, Pcp PCP - General Family Medicine 07/21/18 documented as of this encounter
--- OUTSIDE RECORDS SUMMARY | 2024-09-02 10:43 | XMS_ITS | Encounter Summary ---
Author Organization [facility] Address [address] [place] [address] Care Team Providers Care Environmental Services Supervisor Name Role Phone Elsewhere, Pcp Primary Care Provider Unavailreyes e Encounter Details Date Type Department Care Team (Late st Contact Info) Description 07/26/2015 Historical Ophthalmology [facility] Lv Gupta Jr., M.D. [address] [place] [phone] Social History Tobacco Use Types Packs/Day Years Used Date Smoking Tobacco: Never Assessed Comments Unknown Sex and Gender Information Value Date Recorded Sex Assigned at Female 09/16/2017 3:10 PM PIGMENT WEIGHER Legal Sex Female 7:51 AM PIGMENT WEIGHER Gender Identity Female 09/16/2017 3:10 PM PIGMENT WEIGHER Sexual Orientation Straight 09/16/2017 3: 10 PM PIGMENT WEIGHER documented as of this encounter Progress Notes * Lv Gupta M.D. - 07/26/2015 1:08 PM CDT Eye General CHIEF COMPLAINT Visual anomaly episode HISTORY OF PRESENT ILLNESS Pt states last Saturday had an episode of ripply blurry vision that affected both near & distancevision. Looked like looking underwater and lasted 20 minutes. Thought it might be a pre-cursor to a migraine- like an aura. Then had a bad headache Saturday & Saturday, took 2 Aleve and it seemed to past after. IMPRESSION / REPORT / PLAN A) Ocular migraines P) Supportive care, rto 1 year CDM Reports - EYEGEN Id: [id number] Status: Fnl documented in this encounter Plan of Treatment Upcoming Encounters Date Type Department Care Team (Late st Contact Info) Description 09/03/2024 1:45 PM CDT Appointment Department of Radiology in [place], [place] [address] [place] [phone] Mariajose Woodson D.O. [address] [place] [phone] documented as of this encounter Visit Diagnoses Not on filedocumented in this encounter Additional Health Concerns Infection Onset Date Last Indicated Resolved Time COVID19 Pending 09/05/2020 09/05/2020 09/06/2020 3 :40 PM CDT COVID19 Pending 02/17/2022 02/19/2022 02/19/2022 1 0:52 PM CDT documented as of this encounter Care Teams Environmental Services Supervisor Relationship Specialty Start Date End Date Elsewhere, Pcp PCP - General Family Medicine 07/21/18 documented as of this encounter
--- OUTSIDE RECORDS SUMMARY | 2024-09-02 10:43 | XMS_ITS | Clinical Summary ---
Author Organization [employer] [facility] Address [place], [place] [address] Care Team Providers Care Accounts Payable Associate Name Role Phone Mariajose Woodson [place] GREEN Primary Care Provider [phone] Allergies Active Allergy Reactions Criticality Noted Date Comments Antihistamines - Alkylamine *Unknown Unknown 06/23/2015 Fish Containing Products Anaphylaxis High 08/29/2015 Iodine Rash 06/12/2023 Had welts on the skin and burning Levofloxacin Other - Describe In Comment Field High 03/25/2013 She could not tolerate Penicillins Rash Medium 03/25/2013 Shellfish Containing Products Anaphylaxis High 03/25/2013 All shell fish and All fish Sulfa (Sulfonamide Antibiotics) *Unknown Unknown 06/23/2015 Medications Medication Sig Dispensed Refills Start Date End Date Status estradiol (ESTRACE) 0.1 mg/g vaginal cream Insert 2 g into the vagina once daily. Active Cholecalciferol, Vitamin D3, 2,000 unit tablet Take 2,000 units by mouth once daily. Active calcium carbonate (CALTRATE) 600 mg calcium (1,500 mg) tablet Take 1 tablet by mouth 2 times daily with meals. 180 tablet 3 04/08/2019 Active multivitamin (MVI) tabletIndications: Tuberous sclerosis (HC) Take 1 tablet by mouth once daily. 0 03/31/2020 Active polyvinyl alcohol-povidone (REFRESH LUBRICANT EYE DROPS) 1.4-0.6 % ophthalmic solution Place 1 Drop into both eyes once daily. Active albuterol HFA (PRO-AIR; VENTOLIN; PROVENTIL) 90 mcg/actuation inhalerIndications :Seasonal allergic rhinitis due to pollen,SOB (shortness of breath),Mild intermittent asthma without complication Inhale 2 Puffs by mouth every 4 hours if needed for Shortness of Breath 1st choice or Wheezing 1st choice. 18 g 11 12/20/2021 Active fluticasone propion-salmeteroL (ADVAIR) 250-50 mcg/Dose diskus inhalerIndications :COVID-19 virus infection Inhale 1 Puff by mouth 2 times daily. 60 Each 1 01/17/2022 Active Additional Information Patient taking differently:1 Puff InhalationBID PRN, Informant: Patient's Recall, Reported on 01/16/2023 BinaxNOW COVID-19 Ag Self Test kit TEST DIRECTED TODAY 07/24/2022 Active triamcinolone, 55 mcg each actuation, nasal (Nasacort) 55 mcg nasal spray Inhale 1 Neponset to both nostrils once daily. Active acyclovir (ZOVIRAX) 5 % ointmentIndication s:Recurrent cold sores Apply topically to affected area(s) 6 times daily. 30 g 1 08/19/2023 Active Lactobacillus acidophilus 0.5 mg (100 million cell) tab Take by mouth. 06/15/2022 Active EPINEPHrine (EPIPEN) 0.3 mg/0.3 mL auto-injectorIndic ations:Fish allergy,Shellfish allergy Inject 0.3 mg (1 Pen) intramuscular one time if needed for Allergic Reaction. 2 Each 2 06/10/2024 Active Active Problems Problem Noted Date Diagnosed Date S/P right rotator cuff repair 06/16/2023 Intracranial meningioma 07/20/2022 Osteopenia 06/15/2020 Overview (06/15/2020): Dexa scan May 2020- repeat in 2-3 years. 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 Repeat CT done in 06/2020 showing stable, unchanged nodules. No repeat scan needed. CKD (chronic kidney disease) stage 3, GFR 30-59 ml/min 11/26/2018 Sleep difficulties 06/26/2018 Single kidney 06/26/2018 Vitamin D deficiency 04/27/2018 Recurrent cold sores 04/27/2018 Fish allergy 04/27/2018 Shellfish allergy 04/27/2018 Postmenopausal 04/27/2018 Male pattern alopecia 01/30/2018 Vaginal atrophy 01/21/2018 Follicular cyst of right ovary 12/20/2017 Hyperlipidemia 07/05/2017 Recurrent sinusitis 07/05/2017 Constipation 04/02/2017 Gastroesophageal reflux disease 02/29/2016 Asthma 02/29/2016 Horseshoe tear of retina without detachment, rig ht eye 01/22/2016 Horseshoe tear of retina of left eye without det achment 12/30/2015 Sensorineural hearing loss, bilateral 04/22/2013 Subjective tinnitus 04/22/2013 Migraine headache 04/05/2010 Rhinitis, allergic 04/05/2010 Angiomyolipoma of kidney 01/06/2007 IBS (irritable bowel syndrome) Resolved Problems Problem Noted Date Diagnosed Date Resolved Date Headache 01/16/2023 01/23/2023 Bronchitis 01/16/2023 01/23/2023 COVID-19 virus infection 11/20/202110/2022 Abnormal weight gain 04/16/2019 021 Abdominal pain, chronic, right lower quadrant 04/27/20 18 12/16/2020 Chronic pain syndrome 04/04/20182023 Adjustment disorder with mix ed emotional features 01/04/2018 02/09/2022 Overview (02/09/2022): Resolved. Candidiasis of mouth 01/04/2018 021 Fatigue 12/09/2017 01/23/2023 Increased frequency of urination 11/25/2017 12/16/2020 Flank pain 08/30/2017 12/16/2020 Personal history of other sp ecified conditions 11/14/2016 12/16/2020 Cough 11/17/2013 12/16/2020 Anal fissure 08/28/2011 12/16/2020 Encounters Date Type Department Care Team Description 06/10/2024 2:20 PM CDT Office Visit [address] [address] Mariajose Woodson, Lab (Review lab work) 06/10/2024 Travel 06/08/2024 10:00 AM CDT Orders Only [address] [place] [address] Lab, [facility] 06/08/2024 Travel from Last 3 Months Immunizations Name Administration Dates Next Due Influenza, Inactivated AIIV4 (Age 65+ Years) Preserv Free 08/24/2022,08/05/2020 Influenza, Inactivated IIV3 (Age 65+ Years) Preserv Free 11/20/2019 Pneumococcal Poly,23-Valent (Pneumovax) 09/14/20 20 Td (Age >=7 Years) 04/30/2022 Zoster (Shingrix-RZV, recombinant) 06/29/2022, Family History Medical History Relation Name Comments Hypertension Brother Stroke Brother Age 52 Diabetes Father Heart Disease Father Hyperlipidemia Father Hypertension Father Pernicious anemia Father Stroke Father Heart Disease Mother Hyperlipidemia Mother Hypertension Mother Stroke Mother Hypertension Sister Stroke Sister Age 42 Relation Name Status Comments Brother Father Mother Other phillp open heart surg samson/arotic replacment Sister Social History Tobacco Use Types Packs/Day Years Used Date Smoking Tobacco: Never Smokeless Tobacco: Never Tobacco Cessation:Counseling Given: Yes Alcohol Use Standard Drinks/Week Comments Not Currently 0 (1 standard drink = 0.6 oz pur e alcohol) PHQ-2 Answer Date Recorded PHQ-2 TOTAL SCORE 0 07/23/2022 Social Connections Answer Date Recorded Frequency of Communication with Friends and Fami ly Not on file 07/25/2023 Financial Resource Strain Answer Date R ecorded Difficulty of Paying Living Expenses 3 07/23/2022 Difficulty of Paying Living Expenses Not on file 07/23/2022 Food Insecurity Answer Date Recorded Worried About Running Out of Food in the Last Ye ar 1 07/23/2022 Transportation Needs Answer Date Record ed Lack of Transportation (Medical) 1 07/23/2022 Housing Stability Answer Date Recorded Unable to Pay for Housing in the Last Year 1 07/23/2022 Sex and Gender Information Value Date Recorded Sex Assigned at Female 04/02/2021 3:05 PM CDT Gender Identity Female 04/02/2021 3:05 PM CDT Sexual Orientation Straight 04/02/2021 3: 05 PM CDT Obstetrics History Last Filed Vital Signs Vital Sign Reading Time Taken Comments Blood Pressure 128/88 06/10/2024 2:30 PM CDT Pulse 83 06/10/2024 2:28 PM CDT Temperature 36.5 ??C (97.7 ??F) 10/03/2023 8:21 AM CS T Respiratory Rate 16 06/10/2024 2:28 PM CDT Oxygen Saturation 97% 10/03/2023 8:44 AM AIR BOX TESTER Inhaled Oxygen Concentration - - Weight 71.7 kg (158 lb) 06/10/2024 2:28 PM CDT Height 167 cm (5' 5.75) 06/10/2024 2:28 PM CDT Body Mass Index 25.7 06/10/2024 2:28 PM CDT Plan of Treatment Health Maintenance Due Date Last Done Comments Tdap 1966 Medicare Wellness for age 65+ 2018 Mammogram for age 45-75 05/24/2023 05/24/20, 01/19/2021, 10/28/2019, Additional history exists Lipids for age 45-75 06/24/2023 06/24/2018 Depression screening for age 12+ 07/26/2023 07/26/2022, 07/24/2022, 07/23/2022, Additional history exists COVID-19 vaccine series ( - season) 2024 Influenza for age 65+ 07/12/2024 08/24/2022 , 08/05/2020, 11/20/2019 BMI (ht and wt on same day) for age 18+ 06/10/2025 06/10/2024, 06/12/2023, 07/23/2022, Additional history exists Pneumococcal series for age 65+ (2 of 2 - PCV) 09/11/2025 09/14/2020 Postponed from 09/14/2021 (Provider discretion) Colonoscopy through age 75 10/14/2029 10/14/2019, Tetanus booster 04/30/2032 04/30/2022 DEXA/DXA scan for age 65+ Completed 2019, 05/25/2020, 02/02/2019, Additional history exists Hepatitis C screening for age 18-79 Completed 07/15/2020 Zoster (shingles) series for age 50+ Completed 06/29/2022, 04/30/2022 Procedures Procedure Name Priority Date/Time Associated Diagnosis Comments URINALYSIS MICROSCOPIC Routine 06/08/2024 10:10 AM CDT Stage 3a chronic kidney disease (HC) UA W/ SEDIMENT EXAM REFLEXED PER CRITERIA Routine 06/08/2024 10:10 AM CDT Stage 3a chronic kidney disease (HC) BASIC METABOLIC PANEL Routine 06/08/2024 10:06 AM CDT Stage 3a chronic kidney disease (HC) SCAN-MAMMOGRAPHY REPORT 05/24/2022 12:00 AM CDT ANTI HCV Routine 07/15/2020 1:11 PM CDT Need for hepatitis C screening test SCAN-BONE DENSITOMETRY DEXA 05/25/2020 12:00 AM CDT COLONOSCOPY 10/14/2019 8:08 AM AIR BOX TESTER LIPID PANEL W REFLEX MEASURED LDL Routine 06/24/2018 8:03 AM CDT Screening for condition from Last 3 Months or Most Recently Relevant to Health Maintenance Results * URINALYSIS MICROSCOPIC (06/08/2024 10:10 AM CDT) RBC 0-2 0-2, None Seen /HPF 06/08/2024 10:43 AM CDT [facility] WBC None Seen 0-2, 3-5, None Seen /HPF 06/08/2024 10:43 AM CDT [facility] BACTERIA Rare None Seen, Rare, Few Bacteria/ HPF 06/08/2024 10:43 AM CDT [facility] EPITHELIAL CELLS Few None Seen, Few Epi/HPF 06/08/2024 10:43 AM CDT [facility] Urine URINE SPECIMEN / Unknown Non-Blood / Unknown 06/08/2024 10:10 AM CDT 06/08/2024 10:10 AM CDT Mariajose Woodson DO URINE [facility] [address] [place] [address] * (ABNORMAL) UA W/ SEDIMENT EXAM REFLEXED PER CRITERIA (06/08/2024 10:10 AM [facility]) COLOR Yellow Yellow Color 06/08/2024 10:35 AM [facility] CLARITY Clear Clear Clarity 06/08/2024 10:35 AM [facility] SPECIFIC GRAVITY,URINE <=1.005(A) 1.010, 1.015, 1.020, 1.025 06/08/2024 10:35 AM [facility] PH,URINE 6.0 6.0, 7.0, 8.0, 5.5, 6.5, 7.5, 8.5 06/08/2024 10:35 AM [facility] UROBILINOGEN, QUALITATIVE Normal Normal EU/dl 06/08/2024 10:35 AM [facility] PROTEIN, URINE Negative Negative mg/dL 06/08/2024 10:35 AM [facility] GLUCOSE, URINE Negative Negative mg/dL 06/08/2024 10:35 AM [facility] KETONES,URINE Negative Negative mg/dL 06/08/2024 10:35 AM [facility] BILIRUBIN,URI NE Negative Negative 06/08/2024 10:35 AM [facility] OCCULT BLOOD,URINE Small(A) Negative 06/08/2024 10:35 AM [facility] NITRITE Negative Negative 06/08/2024 10:35 AM [facility] LEUKOCYTE ESTERASE Negative Negative 06/08/2024 10:35 AM [facility] Urine URINE SPECIMEN / Unknown Non-Blood / Unknown 06/08/2024 10:10 AM CDT 06/08/2024 10:10 AM [facility] Mariajose Woodson DO URINE [facility] [address] [place] [address] * (ABNORMAL) BASIC METABOLIC PANEL (06/08/2024 10:06 AM T) SODIUM 139 136 - 145 mmol/L 06/08/2024 11:06 AM [facility] POTASSIUM 4.2 3.5 - 5.1 mmol/L 06/08/2024 11:06 AM [facility] CHLORIDE 104 98 - 107 mmol/L 06/08/2024 11:06 AM [facility] CO2,TOTAL 26 22 - 29 mmol/L 06/08/2024 11:06 AM [facility] ANION GAP 9 5 - 18 06/08/2024 11:06 AM [facility] GLUCOSE 104(H) 70 - 99 mg/dL 06/08/2024 11:06 AM [facility] CALCIUM 9.2 8.8 - 10.2 mg/dL 06/08/2024 11:06 AM [facility] BUN 13 8 - 23 mg/dL 06/08/2024 11:06 AM [facility] CREATININE 0.79 0.50 - 0.90 mg/dL 06/08/2024 11:06 AM [facility] BUN/CREAT RATIO 16 10 - 20 11:06 AM [facility] eGFR 81(L) >90 mL/min/1.7 3m2 06/08/2024 11:06 AM [facility] Comment:As of 2022, eG FR is calculated by the CKD-EPI creatinine equation without race adjustment. ??eGFR can be influenced by muscle mass, exercise, and diet. ??The reported eGFR is an estimation only and is only applicable if the renal function is stable. Blood BLOOD SPECIMEN / Unknown Venipuncture / Unknown 06/08/2024 10:06 AM CDT 06/08/2024 10:06 AM [facility] Mariajose Woodson DO CHEMISTRY [facility] [address] [place] [address] * SCAN-MAMMOGRAPHY REPORT (05/24/2022 12:00 AM CDT) Anatomical Region Laterality Modality Other Scanner OTHER * ANTI HCV (07/15/2020 1:11 PM CDT) HEPATITIS C ANTIBODY Non-React valdo Non-React valdo 07/15/2020 9:37 PM CDT [facility] Comment:Antibodies to HCV no t detected; does not exclude the possibility of exposure to HCV. Blood BLOOD SPECIMEN / Unknown Venipuncture / Unknown 07/15/2020 1:11 PM CDT 07/15/2020 1:14 PM CDT Mariajose Woodson DO SEND OUTS [facility] [address] [place] [address], * SCAN-BONE DENSITOMETRY DEXA (05/25/2020 12:00 AM CDT) Anatomical Region Laterality Modality Other Scanner OTHER * COLONOSCOPY (10/14/2019 8:08 AM AIR BOX TESTER) 10/14/2019 8:08 AM AIR BOX TESTER Narrative Transcriptions Stanley Christianson MD - 10/14/2019 10:41 AM CST Patient Name: Mariajose Boyer Procedure Date: 10/14/2019 Gender: Female Date of : 1955 Admit Type: Ambulatory Procedure: Colonoscopy Proceduralist: Stanley Alvarez One Indications/Pre-Op Diagnosis: Abdominal pain in the right lower quadrant Medications: Midazolam 7 mg IV, Fentanyl 100 microgramsIV Procedure Description: The patient had risks, benefits and alternatives explained to andgave informed consent. The patient had a stable cardiopulmonary status and judged an adequate candidate for conscious sedation. The colonoscope was passed through the anus and advanced to 6 cm into the ileum. The colonoscopy was performed without difficulty. Thepatient tolerated the procedure well. The quality of the bowel preparationwas adequate to identify polyps. The terminal ileum, ileocecal valve, appendiceal orifice, and rectum were photographed. Complications: No immediate complications. Estimated Blood Loss & Specimen: Estimated blood loss: none. Specimen collected - None Findings: The perianal and digital rectal examinations were normal. The colon (entire examined portion) appeared normal. The terminal ileum appeared normal. The retroflexed view of the distal rectum and anal verge was normaland showed no anal or rectal abnormalities. Impressions/Post-Op Diagnosis: - The entire examined colon is normal. - The examined portion of the ileum was normal. - No specimens collected. Recommendation: - Discharge patient to home. - Resume previous diet. - Continue present medications. - Repeat colonoscopy in 10 years for surveillance. - Return to primary care physician as previously scheduled. Moderate Sedation: Moderate (conscious) sedation was administered by the endoscopy nurse and supervised by the endoscopist. The following parameters were monitored: oxygen saturation, heart rate, respiratory rate, adequacyof pulmonary ventilation and reponse to care. Please refer to the patient's medical record flowsheets for moderate sedation details. Moderate (conscious) sedation was administered by the endoscopy nurse and supervised by the endoscopist. The patient's oxygen saturation, heart rate, blood pressure and response to care were monitored. Total physician intraservice time was 24 minutes. Stanley Christianson, 10/14/2019 9:04:38 AM This report has been signed electronically. Note Initiated On: 10/14/2019 8:08 AM Stanley Christianson MD PROCEDURE ORD * LIPID PANEL W REFLEX MEASURED LDL (06/24/2018 8:03 AM CDT) CHOLESTEROL,TOTAL 185 100 - 199 mg/dL 06/24/2018 8:37 AM CDT [facility] TRIGLYCERIDES 65 <150 mg/dL 06/24/2018 8:37 AM CDT [facility] HDL CHOLESTEROL 65 >40 mg/dL 8 8:37 AM CDT [facility] NON-HDL CHOLESTEROL 120 <145 mg/dl 06/24/2018 8:37 AM CDT [facility] CHOL/HDL RATIO 2.85 <4.50 06/24/2018 8:37 AM CDT [facility] LDL CHOLESTEROL 107 <=130 mg/dL 06/24/2018 8:37 AM CDT [facility] PROVIDER ORDERED STATUS RANDOM 06/24/2018 8:37 AM CDT [facility] Blood BLOOD SPECIMEN / Unknown Venipuncture / Unknown 06/24/2018 8:03 AM CDT 06/24/2018 8:03 AM CDT Mariajose Woodson DO CHEMISTRY [facility] [address] [place] [address] from Last 3 Months or Most Recently Relevant to Health Maintenance Insurance Payer Benefit Plan / Group Subscriber ID Effective Dates Phone Address Type [employer]OR [employer] [facility] [id number] 01/04/2021-Prese nt [address] [place] [address] MEDICARE PART A - HB USE ONLY MEDICARE PART A HB ONLY [id number] 08/11/2018-Prese nt ATTN: CLAIMS [address] [place] [address] MEDICARE PART B - HB USE ONLY MEDICARE PART B HB ONLY [id number] 08/11/2018-Prese nt ATTN: CLAIMS [address] [place] [address] MEDICARE - PB USE ONLY MEDICARE PB ONLY [id number] 08/11/2018-Prese nt ATTN: CLAIMS [address] [place] [address] [facility] [id number] 08/11/2018-Prese nt [address] [place] [address] [id number] 04/23/2006-09/10 [facility] OFFICE OF COMMUNITY CARE ATTN: CLAIMS [address] [address] [place] [address] [id number] 04/23/2006-Prese nt [facility] OFFICE OF COMMUNITY CARE ATTN: CLAIMS [address] [address] [place] [address] [facility] [id number] 05/11/2014-Presen t [address] [place] [address] [facility] [id number] 05/11/2014-Presen t [address] [place] [address] Advance Directives * Full Code (Latest Code Status on File) Date Activated Date Inactivated Comments 01/15/2023 11:01 PM 01/16/2023 2:55 PM Question Answer Comments Code Status Discussion: Reviewed Preferences * Full Code Date Activated Date Inactivated Comments 02/22/2022 6:40 AM 02/22/2022 6:27 PM Question Answer Comments Code Status Discussion: Reviewed Preferences * Full Code Date Activated Date Inactivated Comments 12/30/2015 10:39 AM 12/31/2015 2:05 AM * Full Code Date Activated Date Inactivated Comments 06/30/2015 8:25 AM 06/30/2015 1:07 PM Care Teams Accounts Payable Associate Relationship Specialty Start Date End Date Mariajose Woodson DO [address] [place] [address] PCP - General Internal Medicine 04/23/18
--- OUTSIDE RECORDS SUMMARY | 2024-09-02 10:43 | XMS_ITS | Encounter Summary ---
Author Organization [facility] Address [address] [place] [address] Care Team Providers Care Delivery Architect Name Role Phone Elsewhere, Pcp Primary Care Provider Unavailabl e Encounter Details Date Type Department Care Team (Late st Contact Info) Description 03/26/2016 Historical Ophthalmology [facility] Lv Gupta Jr., M.D. [address] [phone] Social History Tobacco Use Types Packs/Day Years Used Date Smoking Tobacco: Never Assessed Comments Unknown Sex and Gender Information Value Date Recorded Sex Assigned at Female 09/16/2017 3:10 PM ENTERPRISE BUSINESS ARCHITECT Legal Sex Female 7:51 AM ENTERPRISE BUSINESS ARCHITECT Gender Identity Female 09/16/2017 3:10 PM ENTERPRISE BUSINESS ARCHITECT Sexual Orientation Straight 09/16/2017 3: 10 PM ENTERPRISE BUSINESS ARCHITECT documented as of this encounter Progress Notes * Lv Gupta M.D. - 03/26/2016 12:56 PM CDT Eye General CHIEF COMPLAINT Complete Exam HISTORY OF PRESENT ILLNESS Flashes at night off to side VA daily, but less noticable. Floaters in the right eye- comes and goes. Jelly that moves through her eye with mvmt. Pepper looking dots at times that comes and goes. ROS good general health- heart and lungs WNL IMPRESSION / REPORT / PLAN #1 s/p Laser retinopexy, both eyes Stable RTo 6 months, dilated DIAGNOSIS #1 s/p Laser retinopexy, both eyes CDM Reports - EYEGEN Id: [id number] Status: Fnl documented in this encounter Plan of Treatment Upcoming Encounters Date Type Department Care Team (Late st Contact Info) Description 09/03/2024 1:45 PM CDT Appointment Department of Radiology in [place], [place] [address] [place] [address] Mariajose Woodson D.O. [address] [place] [phone] documented as of this encounter Visit Diagnoses Not on filedocumented in this encounter Additional Health Concerns Infection Onset Date Last Indicated Resolved Time COVID19 Pending 09/05/2020 09/05/2020 09/06/2020 3 :40 PM CDT COVID19 Pending 02/17/2022 02/19/2022 02/19/2022 1 0:52 PM CDT documented as of this encounter Care Teams Delivery Architect Relationship Specialty Start Date End Date Elsewhere, Pcp PCP - General Family Medicine 07/21/18 documented as of this encounter
--- OUTSIDE RECORDS SUMMARY | 2024-09-02 10:43 | XMS_ITS | Encounter Summary ---
Author Organization [facility] Address [address] [place] [address] Care Team Providers Care B And B Gang Worker Name Role Phone Elsewhere, Pcp Primary Care Provider Unavailreyes e Encounter Details Date Type Department Care Team (Late st Contact Info) Description 01/16/2016 Historical Ophthalmology [facility] Lv Gupta Jr., M.D. [address] [place] [phone] Social History Tobacco Use Types Packs/Day Years Used Date Smoking Tobacco: Never Assessed Comments Unknown Sex and Gender Information Value Date Recorded Sex Assigned at Female 09/16/2017 3:10 PM TOW MOTOR OPERATOR Legal Sex Female 7:51 AM TOW MOTOR OPERATOR Gender Identity Female 09/16/2017 3:10 PM TOW MOTOR OPERATOR Sexual Orientation Straight 09/16/2017 3: 10 PM TOW MOTOR OPERATOR documented as of this encounter Progress Notes * Lv Gupta M.D. - 01/16/2016 12:39 PM CST Eye General CHIEF COMPLAINT Recheck HISTORY OF PRESENT ILLNESS Pt here for recheck of L eye Pt states she is still having some specs floating in L eye States she also has occasional light flashes occasionally IMPRESSION / REPORT / PLAN #1 retinal tear, well supported RTO 1 month, reassured, RD precautions DIAGNOSIS #1 retinal tear, well supported CDM Reports - EYEGEN Id: [id number] Status: Fnl documented in this encounter Plan of Treatment Upcoming Encounters Date Type Department Care Team (Late st Contact Info) Description 09/03/2024 1:45 PM CDT Appointment Department of Radiology in [place], [place] [address] [place] [phone] Mariajose Woodson D.O. [address] [place] [address] [place] [phone] documented as of this encounter Visit Diagnoses Not on filedocumented in this encounter Additional Health Concerns Infection Onset Date Last Indicated Resolved Time COVID19 Pending 09/05/2020 09/05/2020 09/06/2020 3 :40 PM CDT COVID19 Pending 02/17/2022 02/19/2022 02/19/2022 1 0:52 PM CDT documented as of this encounter Care Teams B And B Gang Worker Relationship Specialty Start Date End Date Elsewhere, Pcp PCP - General Family Medicine 07/21/18 documented as of this encounter
--- NOTE | 2024-09-02 11:30 | CRLHL7_ITS ---
For Patients: As a result of the Century Cures Act, medical imaging exams and procedure reports are released immediately into your electronic medical record. You may view this report before your referring provider. If you have questions, please contact your health care provider. BILATERAL SCREENING MAMMOGRAM WITH COMPUTER-AIDED DETECTION AND TOMOSYNTHESIS TECHNIQUE: CC and MLO views were obtained. These mammographic images have been obtained using full-field digital technique. These mammographic images were interpreted with the benefit of computer-aided detection. Breast Tomosynthesis was used in this interpretation. COMPARISON FILM: 06/04/23, 05/24/22, 01/19/21. FINDINGS: There are scattered areas of fibroglandular density IMPRESSION: There is no radiographic evidence for malignancy. ASSESSMENT: BI-RADS Category 2: Benign RECOMMENDATION: Routine screening mammogram in 1 year. A lay language report of this examination will be provided to the patient. Good Armstrong M.D. Diagnostic Radiologist [email or web address] SALVADOR/Dictated by: Good Armstrong MD @ 09/04/2024 9:00:00 AM (Electronically Signed)
== END 2024-09-02 10:40 | disposition home or self-care (01) ==
LOC: MAMMO 10:39
PROVIDERS: PCP Internal Medicine; Visit Provider Obstetrics & Gynecology
DX: Z12.31 Encounter for screening mammogram for malignant neoplasm of breast (principal)
CPT/HCPCS: 77063; 77067

== ENCOUNTER 2024-10-07 14:48 | Outpatient (CLI) | payer MEDICARE, BC, OTHER, SELFPAY ==
--- OUTSIDE RECORDS SUMMARY | 2024-10-07 14:51 | XMS_ITS | Clinical Summary ---
Author Organization [facility] Address [address] [place] [address] Care Team Providers Care Nuclear Engineer Name Role Phone Elsewhere, Pcp Primary Care Provider Unavailabl e Source Comments Patient records contain information from all sites at [facility]. For routine questions regarding patient records, call [phone] during business hours, M-F 8:00 AM - 5:00 PM Central Time. Record requests for emergency care only can be directed to [phone] at any time.[facility] Allergies Active Allergy Reactions Criticality Noted [...] by mouth daily. Active miscellaneous medical supply [facility] For personal use. Length: calf Strength: 20-30 [...] Right 07/05/2017 04/16/2019 Bleed Nose 07/05/2017 04/16/2019 Encounters Date Type Department Care Team Description 2024 Clinical Communication Department of Neurologic Surgery in [place], [place] [address] [place] [address] Rosaline Samaniego, TERI, C.N.P., D.N.P. 09/03/2024 12:33 PM CDT - 09/03/2024 11:59 PM CDT Hospital Encounter Department of Radiology in [place], [place] [address] [place] [address] Mariajose Woodson D.O. Meningioma Brain (HCC) Discharge Disposition: Home or Self Care from Last 3 Months Family History Medical History Relation Name Comments [...] Mother Hypertension Sister 1 Diabetes Sister 2 Melissa Pre diabetes... no medication at this time. Diabetes Uncle 1 Paternal Coronary artery disease Uncle 2 Heart attack Uncle 2 Valvular heart disease Uncle 2 Relation Name Status Comments Aunt Fe Moreno Brother 1 Mynor Brother 2 Renny Brother 3 Vincent Father Mother Mother Sister 1 Sister 2 Melissa Uncle 1 Paternal Uncle 2 Social History [...] How often do you attend chur or yazidi services? More than 4 times per year 02/22/2023 Do you belong to any clubs o r organizations such as latter day groups, unions, fraternal or athletic groups, or [...] and heating? Not hard at all 02/22/2023 [facility] - Occupational Stress [...] place to sleep or slept in a long-term (including now)? No 02/22/2023 Nutrition Answer Date [...] Master's degree (e.g., MA, MS, Jackie, MEd, DIGESTER OPERATOR, LINDSEY) 04/15/2019 Comments No Sex and Gender Information Value Date Recorded Sex Assigned at Female 09/16/2017 3:10 PM EMT P Legal Sex Female 7:51 AM EMT P Gender Identity Female 09/16/2017 3:10 PM EMT P Sexual Orientation Straight 09/16/2017 3: 10 PM EMT P Last Filed Vital Signs Vital Sign Reading Time Taken Comments Blood Pressure 136/86 08/29/2023 8:31 AM CDT Pulse 76 08/29/2023 8:20 AM CDT Temperature 36.4 C (97.5 F) 08/29/2023 8:15 AM CDT Respiratory Rate 16 04/03/2018 10:0 5 PM CDT Oxygen Saturation 96% 08/29/2023 8:20 AM CDT Inhaled Oxygen Concentration - - Weight 68.9 kg (151 lb 14.4 oz) 08/29/2023 6:17 AM CDT Height 165 cm (5' 4.96) 08/29/2023 6:17 AM CDT Body Mass Index 25.31 08/29/2023 6:17 AM CDT Plan of Treatment Health Maintenance Due Date Last Done Comments CT Colonography 1955 Cologuard 1955 FIT 1955 Hepatitis C Screening 1955 COVID-19 Vaccine (#1) 1958 RSV vaccine - (32-36 weeks) or 60+ years (1 - Risk 60-74 years 1-dose series) 2013 Lipid (Cholesterol) Screening 06/24/2019 06/24/2018, 04/24/2017, 06/22/2015, [...] on patient's age to complete this topic IPV Vaccines Aged Out No longer eligi ble based on patient's age to complete this topic Medical Devices Implanted Type Area Intravenous Therapy Nurse Device Identifier Shelf Expiration Date Model / Serial / Lot Hardware E.G. Pins/Screws/Emery s-04/23/2016 Implanted:04/23 (Quantity not on file) Hardware e.g. pins/screws /rods Shoulder Conversions - Default Historical Implant Device Implanted:08/30 (Quantity not on file) Hardware e.g. pins/screws /rods Right: Shoulder Description:Body Location - Shoulder R. screws. Device Status Text - Hardware. Procedures Procedure Name Priority Date/Time Associated Diagnosis Comments MR BRAIN WITHOUT AND WITH IV CONTRAST RAD - Routine (most inpatients and all outpatients) 09/03/2024 1:49 PM CDT Meningioma Brain (HCC) COMPREHENSIVE METABOLIC PANEL, S/P Routine 04/16/2019 8:11 AM CDT Angiomyolipoma Kidney Left LIPID PANEL, S Routine 04/24/2017 8:19 AM CDT BI BREAST SCREENING BILATERAL Routine 02/12/2017 10:43 AM CDT from Last 3 Months or Most Recently Relevant to Health Maintenance Results * MR Brain without and with IV Contrast (09/03/2024 1:49 PM CDT) Anatomical Region Laterality Modality Head, Brain, Neuroradiology RST LOS, Neuroradiology ARZ LOS, Neuroradiology FLA LOS N/A Magnetic Resonance Impressions 09/03/2024 2:44 PM CDT Stable mildly calcified 1.8 cm left parietal convexity meningioma. Narrative 09/03/2024 2:44 PM CDT EXAM: MR BRAIN WITHOUT AND WITH IV CONTRAST COMPARISON:MRI brain, 08/28/2023 and 04/24/2022; CT head, 01/07/2023. FINDINGS: Redemonstration of homogeneously enhancing left parietal convexity, dural based extra-axial mass lesion measuring approximately 1.8 cm x 1.2 cm in transaxial AP and TV dimensions, unchanged . Mild intrinsic susceptibility which corresponds to calcification on CT. Stable associated mild mass effect on the left parietal cortex. No associated vasogenic edema in the left parietal lobe. No acute infarct. Scattered T2 FLAIR hyperintense white matter lesions in bilateral cerebral subcortical and deep white matter, presumably moderate chronic small vessel ischemic white matter disease, not significantly changed. No midline shift. The basal cisterns are patent. Intact intracranial arterial flow voids. Bilateral orbits, paranasal sinuses and mastoid air cells are unremarkable. Procedure Note Stan Holly M.B., Xavier Ureña - 09/03/2024 EXAM: MR BRAIN WITHOUT AND WITH IV CONTRAST COMPARISON:MRI brain, 08/28/2023 and 04/24/2022; CT head, 01/07/2023. FINDINGS: Redemonstration of homogeneously enhancing left parietalconvexity, dural based extra-axial mass lesion measuring approximately 1.8cm x 1.2 cm in transaxial AP and TV dimensions, unchanged . Mild intrinsicsusceptibility which corresponds to calcification on CT. Stable associated mild mass effect on the leftparietal cortex. No associated vasogenic edema in the left parietal lobe.No acute infarct. Scattered T2 FLAIR hyperintense white matter lesions inbilateral cerebral subcortical and deep white matter, presumably moderate chronic small vessel ischemic whitematter disease, not significantly changed. No midline shift. The basalcisterns are patent. Intact intracranial arterial flow voids. Bilateralorbits, paranasal sinuses and mastoid air cells are unremarkable. IMPRESSION: Stable mildly calcified 1.8 cm left parietal convexity meningioma. Mariajose Woodson D.O. [facility] MRI PROCEDURES Final Resu lt * (ABNORMAL) Comprehensive Metabolic Panel (04/16/2019 8:11 AM CDT) Potassium, S 4.8 3.6 - 5.2 mmol/L 04/16/2019 9:38 AM CDT Sodium, S 141 135 - 145 mmol/L 04/16/2019 9:38 AM CDT Chloride, S 103 98 - 107 mmol/L 04/16/2019 9:38 AM CDT Bicarbonate, S 25 22 - 29 mmol/L 04/16/2019 9:38 AM CDT Anion Gap 13 7 - 15 04/16/2019 9:38 AM CDT BUN (Blood Urea Nitrogen), S 16 6 - 21 mg/dL 04/16/2019 9:38 AM CDT Creatinine 1.24(H) 0.59 - 1.04 mg/dL 04/16/2019 9:38 AM CDT eGFR-Non Black/ 46(L) >=60 mL/min/BS A 04/16/2019 9:38 AM CDT Comment: ----ADDITIONAL INFORMATION---- Estimated GFR calculated using the 2009 CKD_EPI creatinine equation. eGFR-Black/ 53(L) >=60 mL/min/BS A 04/16/2019 9:38 AM CDT Comment: ----ADDITIONAL INFORMATION---- Estimated GFR calculated using the 2009 CKD_EPI creatinine equation. Calcium, Total, S 9.0 8.8 - 10.2 mg/dL 04/16/2019 9:38 AM CDT Glucose, S 102 70 - 140 mg/dL 04/16/2019 9:38 AM CDT Protein, Total, S 6.5 6.3 - 7.9 g/dL 04/16/2019 9:38 AM CDT Albumin, S 4.0 3.5 - 5.0 g/dL 04/16/2019 9:38 AM CDT Aspartate Aminotransferase (AST), S 24 8 - 43 U/L 04/16/2019 9:38 AM CDT Alkaline Phosphatase, S 62 35 - 104 U/L 04/16/2019 9:38 AM CDT Alanine Aminotransferase (ALT), S 25 7 - 45 U/L 04/16/2019 9:38 AM CDT Bilirubin, Total, S 0.2 <=1.2 mg/dL 04/16/2019 9:38 AM CDT Blood (Blood, Venous) 04/16/2019 8:11 AM CDT 04/16/2019 8:32 AM CDT us Julisa Maguire M.D., Ph.D. LAB BLOOD ADD-ON Final Result [place] [address] [place], [place] [address] * (ABNORMAL) Lipid Panel (04/24/2017 8:19 AM [...] for FH and FDB is available through [employer]: FH/ADH Genetic Reflex Panel (test ADHP). Acquired (non-genetic) causes of markedly increased LDL cholesterol include cholestatic liver disease due to the presence of LpX. If a genetic form of hypercholesterolemia is suspected, family studies including biochemical testing for lipids (total cholesterol,triglycerides, LDL cholesterol and HDL cholesterol) are recommended. Please contact the laboratory at or the on-line test catalog at [employer] for information about how to order these [...] AM CDT RAD^^^OW [place] Mammo Screening w CADD 02/12/2017 10:43:20 Impressions 02/20/2017 1:20 PM CDT [...] images. Narrative 02/20/2017 1:20 PM CDT EXAM: MA Mammo Screening w/ CADD INDICATION: screening COMPARISON: 12/22/2015, 07/29/2014, 07/15/2012, 06/22/2011 FINDINGS: Heterogeneously dense breast parenchyma bilaterally. Breast density diminishes mammographic sensitivity for detection malignancy. Procedure Note Luiz Koehler M.D. / ProviderFatmata M.D. - 04/29/2017 EXAM: [place] Mammo Screening w/ CADD INDICATION: screening COMPARISON: [...] performed on the digital mammogram images. Sara Lozano(R), RAnaidTAnaid(R)(M) IMG BI WI OCEDURES Edited Result - Final from Last 3 Months or Most Recently Relevant to Health Maintenance Insurance [facility] MEDICARE [facility] Advance Directives For more information, please contact: [phone] Documents on File Type Date Recorded Patient Energy Economist Expl anation Advance Directives 10/15/2017 12:00 AM Leg acy document. See document viewer. Care Teams Nuclear Engineer Relationship Specialty Start Date End Date Elsewhere, Pcp PCP - General Family Medicine 07/21/18
--- OUTSIDE RECORDS SUMMARY | 2024-10-07 14:51 | XMS_ITS | Encounter Summary ---
Author Organization [facility] Address [address] [place] [address] Care Team Providers Care Lay Midwife Name Role Phone Elsewhere, Pcp Primary Care Provider Unavailreyes e Encounter Details Date Type Department Care Team (Late st Contact Info) Description 12/30/2015 Historical Ophthalmology [facility] Lv Gupta Jr., M.D. [address] [place] [phone] Social History Tobacco Use Types Packs/Day Years Used Date Smoking Tobacco: Never Assessed Comments Unknown Sex and Gender Information Value Date Recorded Sex Assigned at Female 09/16/2017 3:10 PM HAND SPRING REPAIRER Legal Sex Female 7:51 AM HAND SPRING REPAIRER Gender Identity Female 09/16/2017 3:10 PM HAND SPRING REPAIRER Sexual Orientation Straight 09/16/2017 3: 10 PM HAND SPRING REPAIRER documented as of this encounter Progress Notes [...] Horseshoe tear of retina, left eye To [place] for laser retinopexy of left eye DIAGNOSIS #1 Horseshoe tear of retina, left eye CDM Reports - EYEGEN Id: [id number] Status: Fnl documented in this encounter Plan of Treatment Not on file documented as of this encounter Visit Diagnoses Not on filedocumented in this encounter Additional Health Concerns Infection Onset Date Last Indicated Resolved Time COVID19 Pending 09/05/2020 09/05/2020 09/06/2020 3 :40 PM CDT COVID19 Pending 02/17/2022 02/19/2022 02/19/2022 1 0:52 PM CDT documented as of this encounter Care Teams Lay Midwife Relationship Specialty Start Date End Date Elsewhere, Pcp PCP - General Family Medicine 07/21/18 documented as of this encounter
--- OUTSIDE RECORDS SUMMARY | 2024-10-07 14:51 | XMS_ITS | Encounter Summary ---
Author Organization [facility] Address [address] [place] [address] Care Team Providers Care Officer Lieutenant Name Role Phone Elsewhere, Pcp Primary Care Provider Freddie e Encounter Details Date Type Department Care Team (Late st Contact Info) Description 04/18/2017 Historical Ophthalmology [facility] Lv Gupta Jr., M.D. [address] [place] [phone] Social History Tobacco Use Types Packs/Day Years Used Date Smoking Tobacco: Never Comments Unknown Sex and Gender Information Value Date Recorded Sex Assigned at Female 09/16/2017 3:10 PM NURSERY SCHOOL TEACHER Legal Sex Female 7:51 AM NURSERY SCHOOL TEACHER Gender Identity Female 09/16/2017 3:10 PM NURSERY SCHOOL TEACHER Sexual Orientation Straight 09/16/2017 3: 10 PM NURSERY SCHOOL TEACHER documented as of this encounter Progress Notes * Lv Gupta M.D. - 04/18/2017 9:03 AM CDT Eye General CHIEF COMPLAINT 6 Month Recheck HISTORY OF PRESENT ILLNESS Less floaters- Continues to have have floaters with strainer Continues to have light flashes outside bahai left eye Distance vision is not as sharp IMPRESSION / REPORT / PLAN #1 h/o retinal tears stable, laser well supported #2 Mild NSC New glasses RTO 1 year DIAGNOSIS #1 h/o retinal tears #2 Mild NSC CDM Reports - EYEGEN Id: [id number] Status: Fnl documented in this encounter Plan [...] documented as of this encounter Care Teams Officer Lieutenant Relationship Specialty Start Date End Date Elsewhere, Pcp PCP - General Family Medicine 07/21/18 documented as of this encounter
--- OUTSIDE RECORDS SUMMARY | 2024-10-07 14:51 | XMS_ITS ---
Author Organization [facility] Address [address] [place] [address] Care Team Providers Care Medical Staff Services Manager Name Role Phone Unavailable Unavailable Unavailable Surgery Details Not on file Complications Check Surgery Details section. Procedure Estimated Blood Loss Check Surgery Details section. Procedure Findings Check Surgery Details section. Procedure Specimens Taken Check Surgery Details section.
--- OUTSIDE RECORDS SUMMARY | 2024-10-07 14:51 | XMS_ITS | Encounter Summary ---
Author Organization [facility] Address [address] [place] [address] Care Team Providers Care Business Economist Name Role Phone Elsewhere, Pcp Primary Care Provider Unavailabl e Encounter Details Date Type Department Care Team (Late st Contact Info) Description 02/13/2016 Historical Ophthalmology [facility] Lv Gupta Jr., M.D. [address] [place] [phone] Social History Tobacco Use Types Packs/Day Years Used Date Smoking Tobacco: Never Assessed Comments Unknown Sex and Gender Information Value Date Recorded Sex Assigned at Female 09/16/2017 3:10 PM SET UP AND LAY OUT INSPECTOR Legal Sex Female 7:51 AM SET UP AND LAY OUT INSPECTOR Gender Identity Female 09/16/2017 3:10 PM SET UP AND LAY OUT INSPECTOR Sexual Orientation Straight 09/16/2017 3: 10 PM SET UP AND LAY OUT INSPECTOR documented as of this encounter Progress Notes [...] physiological diplopia CD Reports - EYEGEN Id: [id number] Status: Fnl documented in this encounter Plan of Treatment Not on file documented as of this encounter Visit Diagnoses Not on filedocumented in this encounter Additional Health Concerns Infection Onset Date Last Indicated Resolved Time COVID19 Pending 09/05/2020 09/05/2020 09/06/2020 3 :40 PM CDT COVID19 Pending 02/17/2022 02/19/2022 02/19/2022 1 0:52 PM CDT documented as of this encounter Care Teams Business Economist Relationship Specialty Start Date End Date Elsewhere, Pcp PCP - General Family Medicine 07/21/18 documented as of this encounter
--- OUTSIDE RECORDS SUMMARY | 2024-10-07 14:51 | XMS_ITS | Referral Summary ---
Author Organization [facility] Address [address] [place] [address] Care Team Providers Care Airline Captain Name Role Phone Elsewhere, Pcp Primary Care Provider Unavailabl e Source Comments Patient records contain information from all sites at [facility]. For routine questions regarding patient records, call [phone] during business hours, M-F 8:00 AM - 5:00 PM Central Time. Record requests for emergency care only can be directed to [phone] at any time.[facility] Encounters Date Type Department Care Team Description 2024 Clinical Communication Department of Neurologic Surgery in [place], [place] [address] [place] [address] Rosaline Samaniego, TERI, C.N.P., D.N.P. 09/03/2024 12:33 PM CDT - 09/03/2024 11:59 PM CDT Hospital Encounter Department of Radiology in [place], [place] [address] [place] [phone] Mariajose Woodson D.O. Meningioma Brain (HCC) Discharge Disposition: Home or Self Care from Last 3 Months Allergies Active Allergy Reactions Criticality Noted Date [...] by mouth daily. Active miscellaneous medical supply [facility] For personal use. Length: [...] TO 8 HOURS NEEDED FOR PAIN 06/05/20 23 Active Active Problems Problem Noted Date Diagnosed [...] week 02/22/2023 How often do you attend [facility] or restorationism services? More than 4 times per year 02/22/2023 Do you belong to any clubs o r organizations such as evangelical groups, unions, fraternal or athletic groups, or [...] and heating? Not hard at all 02/22/2023 [facility] of [facility]at ional [facility] - Occupational Stress Questionnaire Answer Date Recorded [...] place to sleep or slept in a long term (including now)? No 02/22/2023 Nutrition Answer Date [...] Master's degree (e.g., MA, MS, Jackie, MEd, ASSISTANT COMMUNITY DIRECTOR, LINDSEY) 04/15/2019 Comments No Sex and Gender Information Value Date Recorded Sex Assigned at Female 09/16/2017 3:10 PM HOOP PUNCH AND COILER OPERATOR Legal Sex Female 7:51 AM HOOP PUNCH AND COILER OPERATOR Gender Identity Female 09/16/2017 3:10 PM HOOP PUNCH AND COILER OPERATOR Sexual Orientation Straight 09/16/2017 3: 10 PM HOOP PUNCH AND COILER OPERATOR Last Filed Vital Signs Vital Sign Reading [...] 08/29/2023 6:17 AM CDT Plan of Treatment Not on file Medical Devices Implanted Type Area Asphalt Roller Operator Device Identifier Shelf Expiration Date Model / [...] calcified 1.8 cm left parietal convexity meningioma. us Mariajose Woodson D.O. [facility] MRI PROCEDURES Final Resu lt * (ABNORMAL) [...] 8:11 AM CDT 04/16/2019 8:32 AM CDT Julisa Maguire M.D., Ph.D. LAB BLOOD ADD-ON Final Result [facility] [address] [place] [address], [facility] * (ABNORMAL) Lipid Panel (04/24/2017 8:19 AM [...] for FH and FDB is available through [employer]: FH/ADH Genetic Reflex Panel (test ADHP). Acquired (non-genetic) causes of markedly increased LDL cholesterol include cholestatic liver disease due to the presence of LpX. If a genetic form of hypercholesterolemia is suspected, family studies including biochemical testing for lipids (total cholesterol,triglycerides, LDL cholesterol and HDL cholesterol) are recommended. Please contact the laboratory at or the on-line test catalog at [employer] [facility] [employer] for information about how to order these [...] the digital mammogram images. us Sara Lozano(R), Marta(R)(M) IMG BI ID OCEDURES Edited Result - Final from Last 3 Months or Most Recently Relevant to Health Maintenance Insurance [facility] [place] [address] MEDICARE [facility] Advance Directives For more information, please contact: [phone] Documents on File Type Date Recorded Patient Debit Agent Expl anation Advance Directives 10/15/2017 12:00 AM Leg acy document. See document viewer. Care Teams Airline Captain Relationship Specialty Start Date End Date Elsewhere, Pcp PCP - General Family Medicine 07/21/18
--- OUTSIDE RECORDS SUMMARY | 2024-10-07 14:51 | XMS_ITS | Encounter Summary ---
Author Organization [facility] Address [address] [place] [address] Care Team Providers Care Driver'S Education Instructor Name Role Phone Elsewhere, Pcp Primary Care Provider Unavailreyes e Encounter Details Date Type Department Care Team (Late st Contact Info) Description 07/26/2015 Historical Ophthalmology [facility] Lv Gupta Jr., M.D. [address] [place] [phone] Social History Tobacco Use Types Packs/Day Years Used Date Smoking Tobacco: Never Assessed Comments Unknown Sex and Gender Information Value Date Recorded Sex Assigned at Female 09/16/2017 3:10 PM EHS ENGINEER Legal Sex Female 7:51 AM EHS ENGINEER Gender Identity Female 09/16/2017 3:10 PM EHS ENGINEER Sexual Orientation Straight 09/16/2017 3: 10 PM EHS ENGINEER documented as of this encounter Progress [...] 1 year CDM Reports - EYEGEN Id: [id number] Status: Fnl documented in this encounter Plan of Treatment Not on file documented as of this encounter Visit Diagnoses Not on filedocumented in this encounter Additional Health Concerns Infection Onset Date Last Indicated Resolved Time COVID19 Pending 09/05/2020 09/05/2020 09/06/2020 3 :40 PM CDT COVID19 Pending 02/17/2022 02/19/2022 02/19/2022 1 0:52 PM CDT documented as of this encounter Care Teams Driver'S Education Instructor Relationship Specialty Start Date End Date Elsewhere, Pcp PCP - General Family Medicine 07/21/18 documented as of this encounter
--- OUTSIDE RECORDS SUMMARY | 2024-10-07 14:51 | XMS_ITS | Encounter Summary ---
Author Organization [facility] Address [address] [place] [address] Care Team Providers Care Field Marketing Team Leader Name Role Phone Elsewhere, Pcp Primary Care Provider Unavailabl e Encounter Details Date Type Department Care Team (Late st Contact Info) Description 07/31/2016 Historical Ophthalmology [facility] Lv Gupta Jr., M.D. [address] [place] [phone] Social History Tobacco Use Types Packs/Day Years Used Date Smoking Tobacco: Never Assessed Comments Unknown Sex and Gender Information Value Date Recorded Sex Assigned at Female 09/16/2017 3:10 PM ETL INFORMATICA ARCHITECT Legal Sex Female 7:51 AM ETL INFORMATICA ARCHITECT Gender Identity Female 09/16/2017 3:10 PM ETL INFORMATICA ARCHITECT Sexual Orientation Straight 09/16/2017 3: 10 PM ETL INFORMATICA ARCHITECT documented as of this encounter Progress [...] Mild NSC CDM Reports - EYEGEN Id: [id number] Status: Fnl documented in this encounter Plan of Treatment Not on file documented as of this encounter Visit Diagnoses Not on filedocumented in this encounter Additional Health Concerns Infection Onset Date Last Indicated Resolved Time COVID19 Pending 09/05/2020 09/05/2020 09/06/2020 3 :40 PM CDT COVID19 Pending 02/17/2022 02/19/2022 02/19/2022 1 0:52 PM CDT documented as of this encounter Care Teams Field Marketing Team Leader Relationship Specialty Start Date End Date Elsewhere, Pcp PCP - General Family Medicine 07/21/18 documented as of this encounter
--- OUTSIDE RECORDS SUMMARY | 2024-10-07 14:51 | XMS_ITS | Encounter Summary ---
Author Organization [facility] Address [address] [place] [address] Care Team Providers Care Non Destructive Testing Technician Name Role Phone Elsewhere, Pcp Primary Care Provider Unavailabl e Encounter Details Date Type Department Care Team (Late st Contact Info) Description 06/01/2009 Historical Ophthalmology [facility] Khoa Chu M.D. [address] [place] [phone] Social History Tobacco Use Types Packs/Day Years Used Date Smoking Tobacco: Never Assessed Comments Unknown Sex and Gender Information Value Date Recorded Sex Assigned at Female 09/16/2017 3:10 PM SHOE STITCHER ODD Legal Sex Female 7:51 AM SHOE STITCHER ODD Gender Identity Female 09/16/2017 3:10 PM SHOE STITCHER ODD Sexual Orientation Straight 09/16/2017 3: 10 PM SHOE STITCHER ODD documented as of this encounter Progress Notes * Khoa Chu M.D. - 06/01/2009 1:04 PM CDT Eye General CHIEF COMPLAINT Cyst left upper brow. HISTORY OF PRESENT ILLNESS See Dr. Gupta's letter. Patient states that a hydrometer calibrator attempted to remove a mass from her [...] Letter to Dr. Gupta. (monitored anesthesia care; [facility] Procedure [place]) DIAGNOSIS #1 Lipoma, incompletely excised, left forehead. [facility] Id: [id number] Status: Fnl documented in this encounter Plan of Treatment Not on file documented as of this encounter Visit Diagnoses Not on filedocumented in this encounter Additional Health Concerns Infection Onset Date Last Indicated Resolved Time COVID19 Pending 09/05/2020 09/05/2020 09/06/2020 3 :40 PM CDT COVID19 Pending 02/17/2022 02/19/2022 02/19/2022 1 0:52 PM CDT documented as of this encounter Care Teams Non Destructive Testing Technician Relationship Specialty Start Date End Date Elsewhere, Pcp PCP - General Family Medicine 07/21/18 documented as of this encounter
--- OUTSIDE RECORDS SUMMARY | 2024-10-07 14:51 | XMS_ITS | Encounter Summary ---
Author Organization [facility] Address [address] [place] [address] Care Team Providers Care Regulatory Submissions Specialist Name Role Phone Elsewhere, Pcp Primary Care Provider Unavailreyes e Encounter Details Date Type Department Care Team (Late st Contact Info) Description 01/16/2016 Historical Ophthalmology [facility] Lv Gupta Jr., M.D. [address] [place] [phone] Social History Tobacco Use Types Packs/Day Years Used Date Smoking Tobacco: Never Assessed Comments Unknown Sex and Gender Information Value Date Recorded Sex Assigned at Female 09/16/2017 3:10 PM ACCOUNTS RECEIVABLE BOOKKEEPER Legal Sex Female 7:51 AM ACCOUNTS RECEIVABLE BOOKKEEPER Gender Identity Female 09/16/2017 3:10 PM ACCOUNTS RECEIVABLE BOOKKEEPER Sexual Orientation Straight 09/16/2017 3: 10 PM ACCOUNTS RECEIVABLE BOOKKEEPER documented as of this encounter Progress Notes [...] well supported CDM Reports - [facility] Id: [id number] Status: Fnl documented in this encounter Plan of Treatment Not on file documented as of this encounter Visit Diagnoses Not on filedocumented in this encounter Additional Health Concerns Infection Onset Date Last Indicated Resolved Time COVID19 Pending 09/05/2020 09/05/2020 09/06/2020 3 :40 PM CDT COVID19 Pending 02/17/2022 02/19/2022 02/19/2022 1 0:52 PM CDT documented as of this encounter Care Teams Regulatory Submissions Specialist Relationship Specialty Start Date End Date Elsewhere, Pcp PCP - General Family Medicine 07/21/18 documented as of this encounter
--- OUTSIDE RECORDS SUMMARY | 2024-10-07 14:51 | XMS_ITS | Encounter Summary ---
Author Organization [facility] Address [address] [place] [address] Care Team Providers Care Reporting Consultant Name Role Phone Elsewhere, Pcp Primary Care Provider Unavailabl e Encounter Details Date Type Department Care Team (Late st Contact Info) Description 06/21/2009 Historical Ophthalmology [facility] Khoa Chu M.D. [address] [place] [phone] Social History Tobacco Use Types Packs/Day Years Used Date Smoking Tobacco: Never Assessed Comments Unknown Sex and Gender Information Value Date Recorded Sex Assigned at Female 09/16/2017 3:10 PM ADJUNCT SOCIOLOGY PROFESSOR Legal Sex Female 7:51 AM ADJUNCT SOCIOLOGY PROFESSOR Gender Identity Female 09/16/2017 3:10 PM ADJUNCT SOCIOLOGY PROFESSOR Sexual Orientation Straight 09/16/2017 3: 10 PM ADJUNCT SOCIOLOGY PROFESSOR documented as of this encounter Progress Notes * Khoa Chu M.D. - 06/21/2009 10:46 AM CDT Eye Postoperative MULTI-VISIT DOCUMENT This document contains multiple patient visits and is available for review in Document Viewer. CDM Reports - [facility] Id: [id number] Status: Fnl documented in this encounter Plan of Treatment Not on file documented as of this encounter Visit Diagnoses Not on filedocumented in this encounter Additional Health Concerns Infection Onset Date Last Indicated Resolved Time COVID19 Pending 09/05/2020 09/05/2020 09/06/2020 3 :40 PM CDT COVID19 Pending 02/17/2022 02/19/2022 02/19/2022 1 0:52 PM CDT documented as of this encounter Care Teams Reporting Consultant Relationship Specialty Start Date End Date Elsewhere, Pcp PCP - General Family Medicine 07/21/18 documented as of this encounter
--- OUTSIDE RECORDS SUMMARY | 2024-10-07 14:51 | XMS_ITS | Encounter Summary ---
Author Organization [facility] Address [address] [place] [address] Care Team Providers Care Harbormaster Name Role Phone Elsewhere, Pcp Primary Care Provider Unavailabl e Encounter Details Date Type Department Care Team (Late st Contact Info) Description 03/26/2016 Historical Ophthalmology [facility] Lv Gupta Jr., M.D. [address] [place] [phone] Social History Tobacco Use Types Packs/Day Years Used Date Smoking Tobacco: Never Assessed Comments Unknown Sex and Gender Information Value Date Recorded Sex Assigned at Female 09/16/2017 3:10 PM HYDROELECTRIC PLANT TECHNICIAN Legal Sex Female 7:51 AM HYDROELECTRIC PLANT TECHNICIAN Gender Identity Female 09/16/2017 3:10 PM HYDROELECTRIC PLANT TECHNICIAN Sexual Orientation Straight 09/16/2017 3: 10 PM HYDROELECTRIC PLANT TECHNICIAN documented as of this encounter Progress Notes [...] both eyes CDM Reports - [facility] Id: [id number] Status: Fnl documented in this encounter Plan of Treatment Not on file documented as of this encounter Visit Diagnoses Not on filedocumented in this encounter Additional Health Concerns Infection Onset Date Last Indicated Resolved Time COVID19 Pending 09/05/2020 09/05/2020 09/06/2020 3 :40 PM CDT COVID19 Pending 02/17/2022 02/19/2022 02/19/2022 1 0:52 PM CDT documented as of this encounter Care Teams Harbormaster Relationship Specialty Start Date End Date Elsewhere, Pcp PCP - General Family Medicine 07/21/18 documented as of this encounter
--- OUTSIDE RECORDS SUMMARY | 2024-10-07 14:51 | XMS_ITS | Encounter Summary ---
Author Organization [facility] Address [address] [place] [address] Care Team Providers Care Pattern Fitter Name Role Phone Elsewhere, Pcp Primary Care Provider Unavailabl e Encounter Details Date Type Department Care Team (Late st Contact Info) Description 01/22/2016 Historical Ophthalmology [facility] Lv Gupta Jr., M.D. [address] [place] [phone] Social History Tobacco Use Types Packs/Day Years Used Date Smoking Tobacco: Never Assessed Comments Unknown Sex and Gender Information Value Date Recorded Sex Assigned at Female 09/16/2017 3:10 PM METHANE GAS COLLECTION SYSTEM OPERATOR Legal Sex Female 7:51 AM METHANE GAS COLLECTION SYSTEM OPERATOR Gender Identity Female 09/16/2017 3:10 PM METHANE GAS COLLECTION SYSTEM OPERATOR Sexual Orientation Straight 09/16/2017 3: 10 PM METHANE GAS COLLECTION SYSTEM OPERATOR documented as of this encounter Progress [...] clock position CDM Reports - [facility] Id: [id number] Status: Fnl documented in this encounter Plan of Treatment Not on file documented as of this encounter Visit Diagnoses Not on filedocumented in this encounter Additional Health Concerns Infection Onset Date Last Indicated Resolved Time COVID19 Pending 09/05/2020 09/05/2020 09/06/2020 3 :40 PM CDT COVID19 Pending 02/17/2022 02/19/2022 02/19/2022 1 0:52 PM CDT documented as of this encounter Care Teams Pattern Fitter Relationship Specialty Start Date End Date Elsewhere, Pcp PCP - General Family Medicine 07/21/18 documented as of this encounter
--- OUTSIDE RECORDS SUMMARY | 2024-10-07 14:51 | XMS_ITS | Encounter Summary ---
Author Organization [facility] Address [address] [place] [address] Care Team Providers Care Walnut Dehydrator Operator Name Role Phone Elsewhere, Pcp Primary Care Provider Unavailabl e Encounter Details Date Type Department Care Team (Late st Contact Info) Description 2024 Clinical Communication Department of Neurologic Surgery in [place], [place] [address] [place] [phone] Rosaline Samaniego, TERI, C.N.P., D.N.P. [address] [place] [phone] Social History Tobacco Use Types Packs/Day Years Used Date Smoking Tobacco: Never Smokeless Tobacco: Never Alcohol Use Standard Drinks/Week Comments No 0 [...] often do you attend chur ch or confucianism services? More than 4 times per year 02/22/2023 Do you belong to any clubs o r organizations such as christian groups, unions, fraternal or athletic groups, or [...] and heating? Not hard at all 02/22/2023 [facility] [place] [facility] Occupat ional Health - Occupational Stress [...] place to sleep or slept in a halfway (including now)? No 02/22/2023 Nutrition Answer Date [...] Master's degree (e.g., MA, MS, Jackie, MEd, LOT [employer], LINDSEY) 04/15/2019 Comments No Sex and Gender Information Value Date Recorded Sex Assigned at Female 09/16/2017 3:10 PM LYRIC WRITER Legal Sex Female 7:51 AM LYRIC WRITER Gender Identity Female 09/16/2017 3:10 PM LYRIC WRITER Sexual Orientation Straight 09/16/2017 3: 10 PM LYRIC WRITER documented as of this encounter Plan of Treatment Not on file documented as of this encounter Visit Diagnoses Not on filedocumented in this encounter Additional Health Concerns Assessment Noted Time PHQ-9 Depression Total Score: 15 018 6:42 PM CDT documented as of this encounter Care Teams Walnut Dehydrator Operator Relationship Specialty Start Date End Date Elsewhere, Pcp PCP - General Family Medicine 07/21/18 documented as of this encounter
--- OUTSIDE RECORDS SUMMARY | 2024-10-07 14:51 | XMS_ITS | Encounter Summary ---
Author Organization [facility] Address [address] [place] [address] Care Team Providers Care Production Expediter Name Role Phone Elsewhere, Pcp Primary Care Provider Unavailabl e Reason for Referral * MRI/CAT/PET Scan (Routine) - Closed Specialty Diagnoses / Procedures Referred By Contac t Referred To Contact Radiology Diagnoses Meningioma Brain (HCC) Procedures MR Brain without and with IV Contrast Mariajose Woodson D.O. [address] [facility] [place] [address] Phone: tel: fax: [facility] Region Referral ID Status Reason Start Date Expiration Date Visits Re quested Visits Authorized [id number] Closed 06/10/2024 06/10/2025 1 1 Reason for Visit * MRI/CAT/PET Scan (Routine) - Closed Specialty Diagnoses / Procedures Referred By Contac t Referred To Contact Radiology Diagnoses Meningioma Brain (HCC) Procedures MR Brain without and with IV Contrast Mariajose Woodson D.O. [address] [facility] [place] [place] [address] Phone: tel: fax: [facility] Region Referral ID Status Reason Start Date Expiration Date Visits Re quested Visits Authorized [id number] Closed 06/10/2024 06/10/2025 1 1 Encounter Details Date Type Department Care Team (Latest Contact Info) Description 09/03/2024 12:33 PM CDT - 09/03/2024 11:59 PM CDT Hospital Encounter Department of Radiology in [place], [place] [address] [facility] [place] [phone] Mariajose Woodson D.O. [address] [place], [place] [address] [phone] Meningioma Brain (HCC) Discharge Disposition: Home or Self Care Social History Tobacco Use Types Packs/Day Years [...] often do you attend chur ch or mu-ism services? More than 4 times per year 02/22/2023 Do you belong to any clubs o r organizations such as anabaptist groups, unions, fraternal or athletic groups, or [...] and heating? Not hard at all 02/22/2023 [facility] - Occupational Stress Questionnaire Answer Date Recorded [...] place to sleep or slept in a longterm (including now)? No 02/22/2023 Nutrition Answer Date [...] Master's degree (e.g., MA, MS, Jackie, MEd, ACCOUNT EXECUTIVE AGRIBUSINESS, LINDSEY) 04/15/2019 Comments No Sex and Gender Information Value Date Recorded Sex Assigned at Female 09/16/2017 3:10 PM MANAGER NEONATAL Legal Sex Female 7:51 AM MANAGER NEONATAL Gender Identity Female 09/16/2017 3:10 PM MANAGER NEONATAL Sexual Orientation Straight 09/16/2017 3: 10 PM MANAGER NEONATAL documented as of this encounter Medications at Time of Discharge acetaminophen (TYLENOL) 500 mg tablet Take 1,000 mg by mouth 4 (four) times a day as needed. acetaminophen-co deine (TYLENOL #3) 300-30 mg per tablet 3 acyclovir (for_ZOVIRAX) 5 % ointment PRIYANKA EXT AA Q 3 H 5 7 acyclovir (ZOVIRAX) 5 % ointment Apply topically. 3 albuterol 90 mcg/actuation inhaler Inhale 2 puffs 4 (four) times a day as needed. 1 Inhaler 7 calcium carbonate 1,500 mg (600 mg calcium) tablet Take 600 mg by mouth. 9 cholecalciferol (VITAMIN D3) 50 mcg (2,000 Unit) tablet Take 2,000 Units by mouth daily. EPINEPHrine (for_EPIPEN) 0.3 mg/0.3 mL injection syringe Inject 0.3 mg intramuscularly once. Inject into the thigh. For severe fish allergy. EPINEPHrine 0.025%-lidocaine 0.75% in BSS PLUS (EPISHUGARCAINE) 0.025-0.75 % intraocular injection 0.3 mg. 2 estradiol (for_ESTRACE) 0.1 mg/g (0.01%) vaginal cream Insert 2 g into the vagina at bedtime. Apply to vagina two nights per week, Saturday and Meir. fluticasone propion-salmeter oL 250-50 mcg/dose diskus inhaler Inhale 1 puff 2 (two) times a day. 60 each 7 Lactobacillus acidophilus 0.5 mg (100 million cell) tablet every day 2 Lactobacillus acidophilus 0.5 mg (100 million cell) tablet Take by mouth. 2 miscellaneous medical supply [facility] For personal use. Length: calf Strength: 20-30 mmHg Circumference in cm: to be measured in store 9 mupirocin (BACTROBAN) 2 % ointment APPLY TOPICALLY TO THE AFFECTED AREA THREE TIMES DAILY FOR 7 DAYS 3 oxyCODONE (ROXICODONE) 5 mg immediate release tablet TAKE 1 TABLET BY MOUTH EVERY 4 TO 8 HOURS NEEDED FOR PAIN 3 polyethylene glycol (MIRALAX) 17 gram/dose oral powder daily. 2 polyvinyl alcohol-povidone , PF, (REFRESH CLASSIC) 1.4-0.6 % ophthalmic solution Administer 1 drop into both eyes 2 (two) times a day as needed. triamcinolone (NASACORT) 55 mcg/actuation nasal spray 1 spray. 2 triamcinolone (NASACORT) 55 mcg/actuation nasal spray Administer 1 spray into nostril(s). 2 documented as of this encounter Plan of Treatment Not on file documented as of this encounter Procedures Procedure Name Priority Date/Time Associated Diagnosis Comments MR BRAIN WITHOUT AND WITH IV CONTRAST RAD - Routine (most inpatients and all outpatients) 09/03/2024 1:49 PM CDT Meningioma Brain (HCC) documented in this encounter Results * MR Brain without and with [...] 1.8 cm left parietal convexity meningioma. Mariajose ROLLE MRI PROCEDURES Final Resu lt documented in this encounter Visit Diagnoses Diagnosis Meningioma Brain (HCC) documented in this encounter Administered Medications Inactive Administered Medications - up to 3 most recent administrations Medication Order MAR Action Action Date Dose Rate Site gadobutrol injection 0-15 mL (Gadavist) 0-15 mL, intravenous, Once in imaging, contrast, Starting on Opal 09/03/24 at 1336, For 1 dose, Intrathecal doses greater than 0.25 mL not recommended. Given 09/03/2024 1:39 PM CDT 6.8 mL sodium chloride 0.9 % injection 0-150 mL 0-150 mL, intravenous, As needed, line care, Starting on Opal 09/03/24 at 1336 Given 09/03/2024 1:40 PM CDT 10 mL documented in this encounter Additional Health Concerns Assessment Noted Time PHQ-9 Depression Total Score: 15 018 6:42 PM CDT documented as of this encounter Care Teams Production Expediter Relationship Specialty Start Date End Date Elsewhere, Pcp PCP - General Family Medicine 07/21/18 documented as of this encounter
--- OUTSIDE RECORDS SUMMARY | 2024-10-07 14:52 | XMS_ITS | Clinical Summary ---
Author Organization [employer] [facility] Address [place], [place] [address] Care Team Providers Care Offc Spec Name Role Phone Mariajose Woodson [place] GREEN Primary Care Provider [phone] Allergies Active Allergy Reactions Criticality Noted Date [...] (Nasacort) 55 mcg nasal spray Inhale 1 [place] to both nostrils once daily. Active acyclovir [...] Encounters Date Type Department Care Team Description 09/04/2024 Orders Only [place] [address] [place] [address] Mariajose Woodson, DO 1 scan: (1-Ord) [facility], MR BRAIN WITHOUT AND WITH IV CONTRAST, 09/03/2024 09/02/[address] [facility] Scanner 1 scan: (1-Ord) [place], MM SCREEN MAMMO BI, 09/02/2024 from Last 3 Months Immunizations Name Administration [...] 83 06/10/2024 2:28 PM CDT Temperature 36.5 C (97.7 F) 10/03/2023 8:21 AM PROJECT MANAGER PROCESS DEVELOPMENT Respiratory Rate 16 06/10/2024 2:28 PM CDT Oxygen Saturation 97% 10/03/2023 8:44 AM PROJECT MANAGER PROCESS DEVELOPMENT Inhaled Oxygen Concentration - - Weight 71.7 kg (158 lb) 06/10/2024 2:28 PM CDT Height 167 cm (5' 5.75) 06/10/2024 2:28 PM CDT Body Mass Index 25.7 06/10/2024 2:28 PM CDT Plan of Treatment Health Maintenance Due Date Last Done Comments Tdap 1966 Medicare Wellness for age 65+ 2018 Lipids for age 45-75 06/24/2023 06/24/2018 Depression screening for age 12+ 07/26/2023 07/26/2022, 07/24/2022, 07/23/2022, Additional history exists COVID-19 vaccine series ( season) 2024 Influenza for age 65+ 07/12/2024 08/24/2022 , 08/05/2020, 11/20/2019 BMI (ht and wt on same day) for age 18+ 06/10/2025 06/10/2024, 06/12/2023, 07/23/2022, Additional history exists Mammogram for age 45-75 09/02/2025 09/02/20, 05/24/2022, 01/19/2021, Additional history exists Pneumococcal series for age [...] Name Priority Date/Time Associated Diagnosis Comments MR HEAD BRAIN W Routine 09/03/2024 12:00 AM CDT Intracranial meningioma (HC) SCAN-MAMMOGRAPHY REPORT 09/02/2024 12:00 AM CDT ANTI HCV Routine 07/15/2020 1:11 PM CDT Need for hepatitis C screening test SCAN-BONE DENSITOMETRY DEXA 05/25/2020 12:00 AM CDT COLONOSCOPY 10/14/2019 8:08 AM PROJECT MANAGER PROCESS DEVELOPMENT LIPID PANEL W REFLEX MEASURED LDL Routine 06/24/2018 8:03 AM CDT Screening for condition from Last 3 Months or Most Recently Relevant to Health Maintenance Results * MR HEAD BRAIN W (09/03/2024 12:00 AM CDT) Anatomical Region Laterality Modality BRAIN, HEAD Magnetic Resonan ce Mariajose Woodson DO MR * SCAN-MAMMOGRAPHY REPORT (09/02/2024 12:00 AM CDT) Anatomical Region Laterality Modality Other Scanner OTHER * ANTI HCV (07/15/2020 1:11 PM CDT) HEPATITIS C ANTIBODY Non-React valdo Non-React valdo 07/15/2020 9:37 PM CDT [facility] Comment:Antibodies to HCV no t detected; does not exclude the possibility of exposure to HCV. Blood BLOOD SPECIMEN / Unknown Venipuncture / Unknown 07/15/2020 1:11 PM CDT 07/15/2020 1:14 PM CDT Mariajose Woodson DO [facility] [address] [place] [address], * SCAN-BONE DENSITOMETRY DEXA (05/25/2020 12:00 AM CDT) Anatomical Region Laterality Modality Other Scanner OTHER * COLONOSCOPY (10/14/2019 8:08 AM PROJECT MANAGER PROCESS DEVELOPMENT) 10/14/2019 8:08 AM PROJECT MANAGER PROCESS DEVELOPMENT Narrative Transcriptions Stanley Christianson MD - 10/14/2019 10:41 AM CST Patient Name: Mariajose Boyer Procedure Date: 10/14/2019 Gender: Female Date of : 1955 Admit Type: Ambulatory Procedure: Colonoscopy Proceduralist: Stanley Silverio Indications/Pre-Op Diagnosis: Abdominal pain in the right [...] - 199 mg/dL 06/24/2018 8:37 AM CDT [facility] TRIGLYCERIDES 65 <150 mg/dL 06/24/2018 8:37 AM CDT [facility] HDL CHOLESTEROL 65 >40 mg/dL 8 8:37 AM CDT [facility] NON-HDL CHOLESTEROL 120 <145 mg/dl 06/24/2018 8:37 AM CDT [facility] CHOL/HDL RATIO 2.85 <4.50 06/24/2018 8:37 AM CDT [facility] LDL CHOLESTEROL 107 <=130 mg/dL 06/24/2018 8:37 AM CDT [facility] PROVIDER ORDERED STATUS RANDOM 06/24/2018 8:37 AM CDT [facility] Blood BLOOD SPECIMEN / Unknown Venipuncture / Unknown 06/24/2018 8:03 AM CDT 06/24/2018 8:03 AM CDT Mariajose Woodson DO CHEMISTRY [address] [place] [address] from Last 3 Months or Most Recently Relevant to Health Maintenance Insurance Payer Benefit Plan / Group Subscriber ID Effective Dates Phone Address Type [employer] INS [facility] [id number] 01/04/2021-Prese nt [address] [place] [address] MEDICARE PART A - HB USE ONLY MEDICARE PART A HB ONLY [id number] 08/11/2018-Prese nt ATTN: CLAIMS [address] [place] [address] MEDICARE PART B - HB USE ONLY MEDICARE PART B HB ONLY [id number] 08/11/2018-Prese nt ATTN: CLAIMS [address] [place] [address] MEDICARE - PB USE ONLY MEDICARE PB ONLY [id number] 08/11/2018-Prese nt ATTN: CLAIMS [address] [place] [address] [facility] [id number] 08/11/2018-Prese nt [address] [place] [address] [id number] 04/23/2006-09/10 [facility] COMM[facility]ITY [facility]ARE ATTN: CLAIMS [address] [address] [place] [address] [id number] 04/23/2006-Prese nt [facility] OFF[facility] COMMUNITY CARE ATTN: CLAIMS [address] [address] [place] [address] [facility] [employer] [id number] 05/11/2014-Presen t [address] [place] [address] [facility] [id number] 05/11/2014-Presen t [address] [place] [address] Advance Directives * Full Code (Latest Code [...] 8:25 AM 06/30/2015 1:07 PM Care Teams Offc Spec Relationship Specialty Start Date End Date Mariajose Woodson DO [address] [place], [place] [address]ino [address] PCP - General Internal Medicine 04/23/18
--- NOTE | 2024-10-07 15:00 | CRLHL7_ITS ---
For Patients: As a result of the Century Cures Act, medical imaging exams and procedure reports are released immediately into your electronic medical record. You may view this report before your referring provider. If you have questions, please contact your health care provider. DXA BONE MINERAL DENSITY STUDY Reason for exam: Osteopenia. Current height (in): 65. Weight (lb): 155. Menopause age: 53. Ethnicity: White. 1. Have you had a previous hip or vertebral fracture? No. 2. Have you had any fractures during your adult life which did not result from significant trauma (e.g., auto accident)? No. 3. Did either of your parents have a hip fracture? No. 4. Do you smoke? No. 5. Have you ever taken Glucocorticoids? No. 6. Do you have rheumatoid arthritis? No. 7. Do you have secondary osteoporosis? No. 8. Do you drink 3 or more alcoholic drinks per day? No. 9. Are you being treated for osteoporosis? No. 10. Have you ever taken any of the following medications: Actonel, Evista, Fosamax, Miacalcin, Reclast, Boniva, Forteo, HRT (i.e., estrogen/hormone therapy), Protelos, Prolia, Vitamin D, Calcium, other ??? please specify. ANSWER: Yes, vitamin D, calcium, and multivitamins. 11. Do you have any of the following medical conditions: Anorexia or bulimia, asthma or emphysema, end stage renal disease, hyperparathyroidism, any seizure disorders, cancer, inflammatory bowel diseases, hysterectomy, other ??? please specify. ANSWER: No. 12. What was your maximum height (inches)? 65. 13. Do you perform weight bearing exercise regularly? Yes. 14. Do you regularly consume dairy products? Yes. 15. Do you drink caffeinated beverages? Yes. 16. At what age did your period start? 10. 17. Are you premenopausal? No. 18. How many full-term pregnancies have you had? 3. 19. Have you ever missed your period for more than 6 months in a row (not including or menopause)? No. TECHNIQUE: Bone mineral density study was performed using the [employer]. FINDINGS: The results of the study expressed as bone mineral density (BMD) are as follows: Lumbar spine L1 to L3: BMD: 0.846 g/cm2. T-score: -1.6. Z-score: 0.6 Neck Left: BMD: 0.683 g/cm2. T-score: -1.5. Z-score: 0.4 Right: BMD: 0.638 g/cm2. T-score: -1.9. Z-score: 0.0 Total Left: BMD: 0.858 g/cm2. T-score: -0.7. Z-score: 0.9 Right: BMD: 0.828 g/cm2. T-score: -0.9. Z-score: 0.6 IMPRESSION: Osteopenia. *Comparison exams done prior to 04/2020 were performed on different unit, [employer]. COMPARISON: Compared with scan of 07/26/2022, the bone mineral density has increased by 2.7 percent at the spine and increased by 4.1 percent at the hip. Compared with scan of 05/25/2020, the bone mineral density has decreased by 0.1 percent at the spine and increased by 3.4 percent at the hip. FRAX 10-year Fracture Risk Major Osteoporotic Fracture: 11% Hip Fracture: 2.1% Reported Risk Factors: [place] () Neck BMD=0.638, BMI=25.8 Good Armstrong M.D. Diagnostic Radiologist [email or web address] JACQUELINE/[email or web address] carmona/Dictated by: Good Armstrong MD @ 10/09/2024 12:28:00 PM (Electronically Signed)
== END 2024-10-07 14:49 | disposition home or self-care (01) ==
LOC: RAD 14:49
PROVIDERS: PCP Internal Medicine; Visit Provider Obstetrics & Gynecology
DX: M85.80 Other specified disorders of bone density and structure, unspecified site (principal); M85.89 Other specified disorders of bone density and structure, multiple sites; Z78.0 Asymptomatic menopausal state
CPT/HCPCS: 77080